=== PATIENT | female | born 1935 | race Caucasian/White ===

== ENCOUNTER 2017-12-01 12:24 | Outpatient (CLI) | payer MEDICARE, BC ==
[2017-12-01 14:18] LABS: #Lymphocytes 1.2 thou/uL (1.20-3.40); #Monocytes 0.5 thou/uL (0.11-0.59); #Neutrophils 4.5 thou/uL (1.40-6.50); %Basophils 0.8 % (0.0-1.0); %Eosinophils 0.4 % (0.0-10.0); %Lymphocytes 19.5 % (21.0-51.0); %Monocytes 7.8 % (0.0-10.0); %Neutrophils 71.5 % (42.0-75.0); Hemoglobin 13.3 g/dL (12.0-16.0); Mean Corpuscular HGB CONC 33.5 g/dL (32.0-36.0); Mean Corpuscular Hemoglobin 31.7 pg (27.0-31.0); Mean Corpuscular Volume 94.7 fl (81.0-99.0); Mean Platelet Volume 6.9 fL (7.4-10.4); Platelet Count 180 thou/uL (130-400); RBC Distribution Width 11.8 % (11.5-14.5); White Blood Cell (WBC) Count 6.3 thou/uL (4.8-10.8)
[2017-12-01 14:20] LABS: Bilirubin Negative (Negative); Blood, Urine Negative (Negative); Clarity CLEAR (Clear); Glucose, Urine (Dipstick) Negative (Negative); Leukocyte Negative (Negative); Nitrite Negative (Negative); Protein, Urine (Dipstick) Negative (Neg-Trace); Specific Gravity, Urine 1.017 (1.002-1.036); Urobilinogen 0.2 mg/dL (0.2-1.0)
[2017-12-01 14:23] LABS: PTT 34.5 SEC (22.9-36.1)
[2017-12-01 14:34] LABS: Anion Gap 12 mmol/L (10-20); BUN (Urea Nitrogen) 29 mg/dL (9.8-20.1); Calc. Creatinine Clearance 0 mL/min (70-130); Calcium 9.9 mg/dL (7.8-10.44); Carbon Dioxide 23 mmol/L (23-31); Chloride 107 mmol/L (98-107); Estimated GFR-MDRD 48; Glucose 93 mg/dL (83-110); Potassium 4.3 mmol/L (3.5-5.1); Sodium 138 mmol/L (136-145)
[2017-12-01 14:48] LABS: Bacteria/HPF None Seen HPF (None Seen); Hyaline Casts/LPF 0-3 HYALINE CAST LPF (0-3 Hyaline); RBC/HPF 0-3 HPF (0-3); Squamous Epithelial 0-3 HPF (0-3); WBC/HPF 0-3 HPF (0-3)
--- NOTE | 2017-12-03 17:37 | EKG ---
Test Reason : Blood Pressure : / mmHG Vent. Rate : 064 BPM Atrial Rate : 064 BPM P-R Int : 202 ms QRS Dur : 070 ms QT Int : 408 ms P-R-T Axes : 059 031 014 degrees QTc Int : 420 ms Normal sinus rhythm Normal ECG No previous ECGs available Confirmed by DR. Alan ZAMUDIO ([id number]) on 12/03/2017 5:36:52 PM Referred By: IERO Confirmed By:DR. Alan ZAMUDIO
== END 2017-12-01 12:25 | disposition home or self-care (01) ==
LOC: LABBT 12:24
PROVIDERS: ATTEND Orthopaedic Surgery
DX: Z01.810 Encounter for preprocedural cardiovascular examination (principal); Z01.812 Encounter for preprocedural laboratory examination; M17.12 Unilateral primary osteoarthritis, left knee
CPT/HCPCS: 80048; 81001; 85025; 85610; 85730; 87081; 93005; 93010

== ENCOUNTER 2017-12-08 13:55 | Outpatient (CLI) | payer MEDICARE, BC | END 2017-12-08 13:56 | disposition home or self-care (01) | LOC: LABBT 13:55 | PROVIDERS: ATTEND Orthopaedic Surgery | DX: Z01.818 Encounter for other preprocedural examination (principal); M17.12 Unilateral primary osteoarthritis, left knee | CPT/HCPCS: 86850; 86900; 86901 ==

== ENCOUNTER 2017-12-14 07:08 | Day surgery (SDC) | payer MEDICARE, BC ==
[2017-12-01 13:04] VITALS: BMI 32.5
[2017-12-14] MEDS ORDERED: CEFAZOLIN/Water 2 GM/20 ML SYRINGE ONE (08:05)
[2017-12-14] MEDS ORDERED: Midazolam HCl 2 mg/2 ml Vial ONE (08:06)
[2017-12-14] MEDS ORDERED: Morphine 2 MG/ML SYRINGE ONE (08:06)
[2017-12-14] MEDS ORDERED: Ropivacaine 0.2% HCl/PF 20 ML ONE (08:07)
[2017-12-14] MEDS ORDERED: Ketorolac Tromethamine 30 MG/ML VIAL IVP PRN (08:46)
[2017-12-14] MEDS ORDERED: Ondansetron HCl/PF 4 MG/2 ML Vial IVP PRN ×4 (08:46→12:48)
[2017-12-14] MEDS ORDERED: traMADol HCl 50 MG TAB PO PRN ×2 (08:46→11:21)
[2017-12-14] MEDS ORDERED: Ropivacaine HCl/PF 250 ML in Premix Bag 1 BAG NERVE BLCK SCH (08:46)
[2017-12-14] MEDS ORDERED: Zolpidem Tartrate 5 MG TAB PO PRN ×2 (08:46→11:21)
[2017-12-14] MEDS ORDERED: Promethazine HCl 25 MG/ML VIAL IM PRN ×3 (08:46→11:34)
[2017-12-14] MEDS ORDERED: Fentanyl 100 MCG/2 ML VIAL IV PRN (08:47)
[2017-12-14] MEDS ORDERED: HYDROcodone/Acetaminophen 7.5/325 mg Tablet PO PRN ×2 (08:48)
[2017-12-14] MEDS ORDERED: Bupivacaine HCl 0.5%/Epinephrine 1:200,000/PF 30 ml Vial ONE (09:12)
[2017-12-14] MEDS ORDERED: Bupivacaine 0.5% 10 ML VIAL ONE (09:12)
[2017-12-14] MEDS ORDERED: Ropivacaine 0.5% HCl/PF (150 MG/30 ML VIAL) ONE (09:47)
[2017-12-14] MEDS ORDERED: Acetaminophen 325 MG TAB PO PRN (11:21)
[2017-12-14] MEDS ORDERED: diphenhydrAMINE 25 MG CAP PO PRN (11:21)
[2017-12-14] MEDS ORDERED: HYDROcodone/Acetaminophen 10/325 mg Tablet PO PRN ×2 (11:21)
[2017-12-14] MEDS ORDERED: Tranexamic Acid 1,000 MG in Sodium Chloride 0.9% 100 ML IVPB SCH (11:30)
[2017-12-14] MEDS ORDERED: Fentanyl 250 MCG/5 ML VIAL ONE (11:34)
[2017-12-14] MEDS ORDERED: Promethazine HCl 25 MG/ML VIAL SLOW IVP PRN (11:34)
--- NOTE | 2017-12-14 11:51 | OP ---
DATE OF PROCEDURE: 12/14/2017 PREOPERATIVE DIAGNOSIS: Left knee osteoarthrosis. POSTOPERATIVE DIAGNOSIS: Left knee osteoarthrosis. PROCEDURE PERFORMED: Left total knee replacement using Bar Saint pinless navigation. SURGEON: Gregorio Schneider M.D. USER EXPERIENCE MANAGER: Ha Gamez PA-C. BLOOD LOSS: Minimal. COMPLICATIONS: None. ANESTHESIA: She did have a general anesthetic as well as preoperative blocks. DISPOSITION: She did go to the recovery room in stable condition. IMPLANTS: To the left knee is a Triathlon total knee system. The femur was a size 4 cruciate retain ing. We used a size 3 universal tibial baseplate. We used a 3 x 9 mm CS X3 tibial-bearing. We used an asymmetric 29 x 9 X3 patella. 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 At this time, she wants to have her k nee replaced. PROCEDURE IN DETAIL: After all appropriate consent forms were explained and signed, the patient was taken back to the Operating Room and at this time was given general anesthetic. Once the level of an esthesia was appropriate, a well-padded tourniquet was placed on the left leg and the leg was then pr epped and draped in standard surgical fashion. The limb was exsanguinated and tourniquet taken up to 300 mmHg. Midline incision was made with a 10 blade down through the skin and subcutaneous tissue. Bovie electrocautery was used to coagulate any brisk venous bleeding. A new blade was used to make a medial parapatellar arthrotomy. Small subperiosteal release was performed medially and excess fat pad was removed. The knee was flexed up to gain access to the femur. The femur was navigated and di stal femoral resection was made. Epicondylar access was used to align our sizing jig and this was pi nned in place. We sized our femur to be a size 4 cruciate retaining, 4:1 cutting block was applied a nd pinned. Anterior and posterior chamfer cuts were then made. We navigated out our proximal tibia and made our proximal tibial resection. Spreaders were used to remove any posterior osteophytes off the back of the femur as well as remaining meniscal tissue. A long alignment john was then used to ac hieve correct rotation of our tibial baseplate and a size 3 universal tibial baseplate was chosen. T his was pinned in place. We trialed the polyethylene and a 3 x 9 mm CS X3 tibial-bearing polyethylen e gave us full extension and good stability throughout range of motion. Two towel clips and a saw we re used to cut our patella. Three lug nuts were drilled and 29 x 9 X3 patella was trialed which sat nicely in the trochlear groove. We then drilled our femur and punched our tibia. All components wer e removed. The knee was thoroughly irrigated and dried. Cement was mixed into the cement gun on the back table. Components were then placed. The knee was held out in full extension until the cement had dried. All excess bone cement was removed. Multiple #2 Vicryl stitches as well as a Quill was u sed to close our extensor mechanism. 0 Quill followed by a running Monoderm was then used to close t he skin. Surgicel glue was then used on the skin. Once this had dried, soft tissue dressing was cherry lied to the limb, tourniquet was let down, and the toes pinked up nicely. The patient was then awake renzo and taken to the Recovery Room in stable condition. All counts were correct at the end of the ca se. The patient did receive preoperative IV antibiotics. The patient was injected with Exparel for postoperative pain relief.
[2017-12-14] MEDS ORDERED: Promethazine HCl 25 MG/ML VIAL IM/IV PRN (12:48)
[2017-12-14] MEDS ORDERED: Non-Formulary Medication 1 EACH PO PRN (12:48)
[2017-12-14] MEDS: Sodium Chloride 0.9% 1,000 ML IV SCH (14:12)
[2017-12-14] MEDS ORDERED: Dexamethasone 20 MG/5 ML VIAL ONE (14:44)
[2017-12-14] MEDS ORDERED: Ondansetron HCl/PF 4 MG/2 ML Vial ONE (14:44)
[2017-12-14] MEDS ORDERED: Propofol 200 MG/20 ML VIAL ONE (14:44)
[2017-12-14] MEDS: Gabapentin 400 MG CAP PO SCH ×2 (15:58→21:23)
[2017-12-14] MEDS ORDERED: CEFAZOLIN/Water 2 GM/20 ML SYRINGE SLOW IVP SCH (16:00)
[2017-12-14] MEDS: CEFAZOLIN/Water 2 GM/20 ML SYRINGE SLOW IVP SCH (18:03)
[2017-12-14] MEDS ORDERED: Vancomycin HCl 1.5 GM in Sodium Chloride 0.9% 250 ML 300 ML IVPB SCH (20:00)
[2017-12-14] MEDS: Senokot S 8.6-50 MG TAB PO SCH (21:21)
[2017-12-14] MEDS: Ferrous Gluconate 324 MG TAB PO SCH (21:21)
[2017-12-14] MEDS: Aspirin 81 mg Enteric Coated Tablet PO SCH (21:23)
[2017-12-15] MEDS: Sodium Chloride 0.9% 1,000 ML IV SCH ×3 (00:32→17:03)
[2017-12-15] MEDS: CEFAZOLIN/Water 2 GM/20 ML SYRINGE SLOW IVP SCH (02:09)
[2017-12-15 06:01] LABS: Hemoglobin 10.9 g/dL (12.0-16.0); Mean Corpuscular HGB CONC 32.3 g/dL (32.0-36.0); Mean Corpuscular Hemoglobin 30.7 pg (27.0-31.0); Mean Corpuscular Volume 95.2 fl (81.0-99.0); Mean Platelet Volume 6.9 fL (7.4-10.4); Platelet Count 151 thou/uL (130-400); RBC Distribution Width 11.8 % (11.5-14.5); Red Blood Cell (RBC) Count 3.56 mill/uL (4.20-5.40); White Blood Cell (WBC) Count 10.2 thou/uL (4.8-10.8)
[2017-12-15] MEDS: traMADol HCl 50 MG TAB PO PRN ×2 (06:13→14:41)
[2017-12-15] MEDS: Gabapentin 400 MG CAP PO SCH ×3 (08:44→20:40)
[2017-12-15] MEDS: Ferrous Gluconate 324 MG TAB PO SCH ×2 (08:44→20:39)
[2017-12-15] MEDS: Multivitamin W/ Minerals 1 TAB PO SCH (08:44)
[2017-12-15] MEDS: Senokot S 8.6-50 MG TAB PO SCH ×2 (08:44→20:40)
[2017-12-15] MEDS: Aspirin 81 mg Enteric Coated Tablet PO SCH ×2 (08:44→20:39)
--- NOTE | 2017-12-15 10:21 | PRG ---
DATE OF SERVICE: 12/15/2017 SUBJECTIVE: Rani is an 82-year-old female who is postop day #1 from a left total knee arthroplas ty. She did relatively well. Pain is relatively well controlled on p.o. pain medications. OBJECTIVE: VITAL SIGNS: Temperature 98.4, pulse 82, respiratory rate 16, O2 saturation on room air is 93%, benjie thing appears unlabored, and blood pressure is 131/69. GENERAL: She is alert and oriented to person, place, time, and situation. Tolerating regular diet. Chi still intact and her block is working relatively well, but she did have some sensation to pain about 5:00 a.m. today and has been persistent. NEUROVASCULAR: She is neurovascularly intact in both extremities with good dorsiflexion, inversion, eversion. EXTREMITIES: Wound appears clean. There is no strike through. No erythema. LABORATORY DATA: Hemoglobin and hematocrit 10.9 and 33.9. ASSESSMENT: 1. An 82-year-old white female postoperative day #1 left total knee arthroplasty, doing relatively w ell other than with some amplification of pain. 2. Postoperative hemorrhagic anemia. PLAN: Continue current management need to establish p.o. pain control, meet therapy goals and consid er discharge tomorrow.
[2017-12-16] MEDS: traMADol HCl 50 MG TAB PO PRN ×2 (00:41→12:20)
[2017-12-16] MEDS: Sodium Chloride 0.9% 1,000 ML IV SCH ×2 (04:09→14:12)
[2017-12-16 04:23] LABS: Hemoglobin 11.2 g/dL (12.0-16.0); Mean Corpuscular HGB CONC 33.7 g/dL (32.0-36.0); Mean Corpuscular Hemoglobin 31.8 pg (27.0-31.0); Mean Corpuscular Volume 94.5 fl (81.0-99.0); Platelet Count 150 thou/uL (130-400); RBC Distribution Width 12.2 % (11.5-14.5); Red Blood Cell (RBC) Count 3.51 mill/uL (4.20-5.40); White Blood Cell (WBC) Count 10.6 thou/uL (4.8-10.8)
[2017-12-16] MEDS: Senokot S 8.6-50 MG TAB PO SCH (08:19)
[2017-12-16] MEDS: Ferrous Gluconate 324 MG TAB PO SCH (08:19)
[2017-12-16] MEDS: Aspirin 81 mg Enteric Coated Tablet PO SCH (08:19)
[2017-12-16] MEDS: Multivitamin W/ Minerals 1 TAB PO SCH (08:19)
[2017-12-16] MEDS: Gabapentin 400 MG CAP PO SCH (08:20)
[2017-12-16 11:50] VITALS: BP 154/78; TEMP 98.3
[2017-12-18] MEDS ORDERED: CeleCOXIB 100 MG CAP PO SCH (09:00)
== END 2017-12-16 15:31 | disposition home or self-care (01) ==
LOC: SDC 07:08 → SJJU 12:33 → SDC 12-16 15:31
PROVIDERS: ATTEND Orthopaedic Surgery
PROC: 0SRD0J9 Replacement of Left Knee Joint with Synthetic Substitute, Cemented, Open Approach (ICD-10-PCS; principal; 2017-12-14)
DX: M17.12 Unilateral primary osteoarthritis, left knee (principal); D62 Acute posthemorrhagic anemia; G62.9 Polyneuropathy, unspecified; Z79.899 Other long term (current) drug therapy; Z98.890 Other specified postprocedural states
CPT/HCPCS: 27447; 85027; 96374; 97110 ×2; 97116 ×3; 97139; 97150; 97530; C1713; C1776; G8978; G8979; 36415; J0670; J1100; J1642; J1885; J2250; J2270; J2405; J2704; J2795; J3010; J3370; J3490; J7050

== ENCOUNTER 2018-12-03 13:40 | Outpatient (CLI) | payer MEDICARE, BC ==
--- NOTE | 2018-12-03 16:03 | MRI ---
MRI BRAIN WITH AND WITHOUT CONTRAST: DATE: 12/03/18 HISTORY: 83-year-old female with history of ovarian cancer, with intracranial mass, D32.9, meningioma. Dr. Dubose discussed the findings and recommendation by telephone with Dr. Megha Warren at 1536 hours on 12/03/18. COMPARISON: None available. TECHNIQUE: Multiple sequences obtained in axial, sagittal, and coronal planes; pre and post IV injection of gado linium-based contrast agent: 15 mL MultiHance. FINDINGS: There is a round, 0.9 x 0.7 x 0.6 cm, enhancing mass at the trifurcation of the right middle cerebral artery consistent with aneurysm. At the medial aspect of the left cerebellar hemisphere, there is a heterogeneously enhancing solid ma ss measuring approximately 1.9 x 2.3 x 1.8 cm. It has mixed signal intensity, including intermediate and hyperintense signal on both T2 WI and T1 WI precontrast. There is no surrounding vasogenic edema. It appears to be intra-axial. There is a small cortical and subcortical old infarction near the right parietooccipital junction. Th ere are chronic ischemic white matter changes scattered throughout the bilateral chiu radiata and c entrum semiovale. Diffuse, age-appropriate brain parenchymal volume loss. No obstructive hydrocephalu s, mass effect, midline shift, acute intra-axial hemorrhage, or extra-axial fluid collection. The gra dient echo sequence demonstrates multiple tiny, punctate foci of remote hemorrhages in the right post erior parietal region. There is no restricted diffusion. IMPRESSION: 1. 0.9 cm intracranial aneurysm at the trifurcation of the right middle cerebral artery. 2. A 2.3 cm enhancing neoplastic tumor mass in the left cerebellar hemisphere. This appears to be in tra-axial, and metastatic lesion should be considered, although the lack of vasogenic edema would be unusual for a metastasis. The alternative diagnosis of meningioma, as stated in the history, is a pos sibility, but the appearance is also atypical for meningioma, with weak, heterogeneous enhancement, a nd without a broad dural base (although perhaps it may be arising from a midline dural reflection). 3. Multiple punctate tiny foci of remote hemorrhages in the right parietal lobe, perhaps representin g mild amyloid angiopathy. 4. Probable small old infarction of the right parietooccipital junction. 5. Recommend neurosurgical consultation. CODE CR. MARIMAR R POS: TPC
== END 2018-12-03 13:41 | disposition home or self-care (01) ==
LOC: SCSMRI 13:40
PROVIDERS: ATTEND Internal Medicine Geriatric Medicine
DX: D32.0 Benign neoplasm of cerebral meninges (principal); I67.1 Cerebral aneurysm, nonruptured
CPT/HCPCS: 70553; 82565

== ENCOUNTER 2018-12-23 13:17 | Outpatient (CLI) | payer MEDICARE, BC ==
--- NOTE | 2018-12-23 15:37 | PET ---
FEXAM: PET/CT HISTORY: 83-year-old female with ovarian cancer. Exam requested for restaging. Last chemotherapy was in November 2015. TECHNIQUE: PET scanning with CT attenuation correction was performed from the base of the brain to the proximal thighs following the intravenous administration of 12.4 millicuries [id number]. COMPARISON: None. FINDINGS: No yessenia hypermetabolism is seen in the neck, chest, axillae, abdomen, pelvis and inguinal regions. N o hypermetabolic pulmonary nodules, liver, adrenal or skeletal lesions are seen. . There is physiologic activity in the GI and tracts and the visualized portions of the brain. The CT scan used for attenuation correction demonstrates no evidence of pleural effusions or ascites. There is sigmoid diverticulosis IMPRESSION: No evidence of metastatic disease.
== END 2018-12-23 13:18 | disposition home or self-care (01) ==
LOC: PET 13:17
PROVIDERS: ATTEND Radiology Radiation Oncology
DX: C56.9 Malignant neoplasm of unspecified ovary (principal)
CPT/HCPCS: 78815; A9552

== ENCOUNTER 2019-02-08 10:13 | Outpatient (CLI) | payer MEDICARE, BC ==
--- NOTE | 2019-02-08 12:18 | MRI ---
MRI BRAIN WITH AND WITHOUT CONTRAST: DATE: 02/08/2019 HISTORY: 83-year-old female with history of ovarian cancer. Follow-up abnormal brain MRI. COMPARISON: 12/03/2018 TECHNIQUE: Multiplanar, multisequence MRI of the brain performed pre- and post-IV injection of gadolinium based contrast agent. FINDINGS: The mass in the left cerebellar hemisphere has become larger, currently measuring approximately 2.8 x 2.4 x 3 cm. There is now a central component of nonenhancing necrosis within the tumor. Also, there is a new finding of mild adjacent surrounding vasogenic edema. This now appears to be more conc lusively intra-axial on the current MRI. This still does not cause significant mass effect. No obstructive hydrocephalus. The aneurysm at the right MCA trifurcation has not significantly changed. No other intra-axial metast atic lesions are identified. Again noted are the multiple tiny foci of remote punctate hemorrhages in the right parietal region, perhaps representing regional amyloid angiopathy. The small cortical an d subcortical old infarction near the right parieto-occipital junction is again noted. Chronic ischemic white matter changes of the chiu radiata and centrum semiovale, mild to moderate, are agai n demonstrated. No restricted diffusion. IMPRESSION: 1) interval growth of left cerebellar intra-axial mass, now necrotic with surrounding vasogenic edema . 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 2) aneurysm at the right middle cerebral artery trifurcation 3) small to moderate-sized old right parieto-occipital infarction. 4) other findings as described above.
== END 2019-02-08 10:14 | disposition home or self-care (01) ==
LOC: SCSMRI 10:13
PROVIDERS: ATTEND Neurological Surgery
DX: D49.6 Neoplasm of unspecified behavior of brain (principal); I67.1 Cerebral aneurysm, nonruptured; G93.6 Cerebral edema; G93.9 Disorder of brain, unspecified; I25.2 Old myocardial infarction; I67.82 Cerebral ischemia
CPT/HCPCS: 70553; 82565

== ENCOUNTER 2019-02-18 05:49 | Inpatient (IN) | payer MEDICARE, BC ==
--- NOTE | 2019-02-18 00:22 | HP ---
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 MRI of her brain in November revealed small aneurysm and a lesion in the left cerebellum. Followup scan 2 months later showed enlargement of the lesion and she is here for my opinion on treating it. Her symptoms are minimal. She seems to get a bit off balance as she ages, but the hands and feet continue to feel coordinated and normal. There is no headache. MEDICAL HISTORY: Ovarian cancer, neuropathy. ALLERGIES: HYDROCODONE, ACETAMINOPHEN. REVIEW OF SYSTEMS: A 10-point review of systems has been completed and is negative other than stated in the above HPI. PAST SURGICAL HISTORY: Venous ablation, tonsillectomy, carpal tunnel, left total knee. FAMILY HISTORY: Father of emphysema. Mother . SOCIAL HISTORY: Nonsmoker. Denies alcohol or drugs. 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 PHYSICAL EXAMINATION: CONSTITUTIONAL: Alert, oriented, in no visible distress. LUNGS: Respirations normal work of breathing on room air. NEUROLOGIC: Cranial nerves intact. Cerebellar exam, there is no truncal ataxia. Slight slow finger rapid motion on the left versus right hand, but this is very suitable. Gait and station are normal gait. Tandem gait is a bit off balance, not terrible. Motor exam no drift. Sensory exam no neglect. IMAGING: MRI left cerebellar lesion enhancing with central cystic component 19 x 22 mm at 1st, now 25 x 23 mm, open 4th ventricle. No other enhancing lesions. 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 Olivia has offered to biopsy and the patient understands the risks and is willing to move forward. Job ID: [id number]
[2019-02-18] MEDS ORDERED: Lidocaine 0.5%/Epinephrine 1:200,000 50 ml Vial ONE (06:16)
[2019-02-18] MEDS ORDERED: Bacitracin Zinc Ointment 30 gm TUBE ONE (06:17)
[2019-02-18] MEDS ORDERED: Sodium Chloride 0.9% 10 ML ONE (06:17)
[2019-02-18] MEDS ORDERED: Thrombin 5000 UNITS/5 ML VIAL ONE (06:17)
[2019-02-18] MEDS ORDERED: Fentanyl 250 MCG/5 ML VIAL ONE (06:19)
[2019-02-18 06:55] LABS: #Monocytes 0.5 thou/uL (0.11-0.59); #Neutrophils 3.6 thou/uL (1.40-6.50); %Basophils 0.6 % (0.0-1.0); %Eosinophils 0.2 % (0.0-10.0); %Lymphocytes 20.1 % (21.0-51.0); %Monocytes 9.3 % (0.0-10.0); %Neutrophils 69.8 % (42.0-75.0); Hemoglobin 13.1 g/dL (12.0-16.0); Mean Corpuscular HGB CONC 33.7 g/dL (32.0-36.0); Mean Corpuscular Hemoglobin 31.8 pg (27.0-31.0); Mean Corpuscular Volume 94.3 fL (78.0-98.0); Mean Platelet Volume 7.6 fL (7.4-10.4); Platelet Count 158 thou/uL (130-400); RBC Distribution Width 12.2 % (11.5-14.5); White Blood Cell (WBC) Count 5.1 thou/uL (4.8-10.8)
[2019-02-18 07:00] LABS: PTT 31.2 SEC (22.9-36.1); Prothrombin Time 13.2 SEC (12.0-14.7)
[2019-02-18] MEDS ORDERED: Docusate 100 MG CAP PO PRN (09:45)
[2019-02-18] MEDS ORDERED: Morphine 4 MG/ML VIAL SLOW IVP PRN ×2 (09:45)
[2019-02-18] MEDS ORDERED: hydrALAZINE 20 MG/ML VIAL SLOW IVP PRN (09:45)
[2019-02-18] MEDS ORDERED: Promethazine 25 MG TAB PO PRN (09:45)
[2019-02-18] MEDS ORDERED: diphenhydrAMINE 50 MG CAP PO PRN (09:45)
[2019-02-18] MEDS ORDERED: Cepastat Lozenges 1 LOZ PO PRN (09:45)
[2019-02-18] MEDS ORDERED: Acetaminophen 325 MG TAB PO PRN ×2 (09:45→09:55)
[2019-02-18] MEDS ORDERED: Mag-Al 1200 mg/1200 mg/30 ML UDCUP PO PRN (09:45)
[2019-02-18] MEDS ORDERED: diphenhydrAMINE 50 MG/ML VIAL IVP PRN (09:45)
[2019-02-18] MEDS ORDERED: Promethazine HCl 25 MG/ML VIAL IM PRN ×2 (09:45→10:11)
[2019-02-18] MEDS ORDERED: Labetalol HCl 100 MG/20 ML VIAL SLOW IVP PRN ×2 (09:45→12:00)
[2019-02-18] MEDS ORDERED: Ondansetron PF 4 MG/2 ML Vial IVP PRN (09:45)
[2019-02-18] MEDS ORDERED: Promethazine HCl 25 MG/ML VIAL SLOW IVP PRN (10:11)
[2019-02-18] MEDS ORDERED: Ondansetron HCl/PF 4 MG/2 ML Vial IVP PRN (10:11)
[2019-02-18] MEDS ORDERED: Labetalol HCl 100 MG/20 ML VIAL ONE (10:16)
[2019-02-18] MEDS: Sodium Chloride 0.9% 1,000 ML IV SCH ×2 (11:44→20:24)
[2019-02-18 11:51] VITALS: BMI 35.1
[2019-02-18] MEDS: Gabapentin 400 MG CAP PO SCH ×2 (14:06→20:24)
[2019-02-18] MEDS: CEFAZOLIN 2 GM in Premix Bag 1 BAG IVPB SCH ×2 (14:06→20:25)
[2019-02-18 15:52] VITALS: BP 111/76
--- NOTE | 2019-02-18 16:39 | OP ---
DATE OF PROCEDURE: 02/18/2019 SNUFF MAKER: Indu Pratt PA-C PREOPERATIVE INDICATION: Make diagnosis, prevent neurological deterioration. PREOPERATIVE DIAGNOSIS: Left cerebellar lesion, possible metastasis or primary tumor. POSTOPERATIVE DIAGNOSIS: Left cerebellar lesion, possible metastasis or primary tumor. PROCEDURE PERFORMED: BrainLAB-assisted stereotactic, twist-drill assisted biopsy of left cerebellar lesion. PREOPERATIVE MEDICATIONS: Ancef 2 g IV. DRAIN NUMBER: Zero. DRAIN TYPE: None. DESCRIPTION OF PROCEDURE: The patient was brought to the operating room. General endotracheal anesthesia was induced. The patient was placed in right lateral decubitus position and the head was immobilized in Dockery pin and head bone grinder. We generated 3-dimensional stereotactic space with the BrainLAB navigation system. This was done with the surface registration technique and preoperative BrainLAB protocol MRI scan. Registration was verified with surface landmarks. We then planned our entry point. The scalp was sterilely prepped and draped. We opened the skin over our entry point with a 10-blade knife and controlled bleeding with bipolar cautery. We placed a self-retaining retractor. The VarioGuide guidance system was swung into place. Through the VarioGuide, we advanced the twist-drill and encountered a ledge of bone that was causing the twist-drill to deviate. Therefore, we brought a high-speed drill with a alice bit into the field and made about a 4-mm kelsie hole in the posterior fossa at her entry point. We then brought the VarioGuide back in the field and verified our trajectory. We advanced the biopsy probe through the cerebellum into the lesion. Four samples were sent to Pathology and we waited for their answer. When the pathologist called that the lesion was likely metastatic and they had enough tissue to make a permanent diagnosis, we elected not to sample any more tissue. We irrigated through the biopsy probe. The biopsy probe was carefully withdrawn. We irrigated the entry point and found no bleeding. We closed the wound with a single suture and four jayne. We applied a sterile dressing. This was a clean case, no contamination. Job ID: [id number]
[2019-02-18] MEDS ORDERED: Ergocalciferol 1.25 MG(50,000 UNITS) CAP PO SCH (17:00)
--- NOTE | 2019-02-19 07:21 | PRG ---
DATE OF SERVICE: 02/19/2019 I saw Ms. Krueger in her ICU room this morning. She is one day out from a cerebellar biopsy and doing well. She has no complaints overnight. Her vital signs have been stable. Her neurological examination is stable as well. ASSESSMENT AND PLAN: The preliminary pathology (frozen section) suggests a metastatic lesion. There is a papillary architecture to what appears to be an adenocarcinoma or at least a carcinoma. 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 If this indeed is a metastatic lesion, then I will recommend radiation therapy in the form of stereotactic radiosurgery or hypofractionated radiosurgery or even external beam radiation. I will have her visit with Dr. Haines to design a treatment plan. Ms. Krueger is ready for discharge. She does not need a dressing and showers are acceptable. I do not have an activity restrictions. Job ID: [id number]
[2019-02-19] MEDS: Gabapentin 400 MG CAP PO SCH (07:54)
[2019-02-19] MEDS ORDERED: Calcium Carbonate 500 MG ChewTAB PO SCH (09:00)
[2019-02-19 12:05] VITALS: TEMP 98.4
[2019-02-25] MEDS ORDERED: [UNRECOGNIZED DRUG - OTHER] PO SCH (09:00)
== END 2019-02-19 12:20 | disposition home or self-care (01) | DRG 27 ==
LOC: SURG A 05:49 → EDSTATUS 09:55 → CCU 10:57
PROVIDERS: ADMIT Neurological Surgery; ATTEND Neurological Surgery
PROC: 00B Central Nervous System and Cranial Nerves, Excision (ICD-10-PCS; principal; 2019-02-18)
DX: C79.31 Secondary malignant neoplasm of brain (principal); G62.9 Polyneuropathy, unspecified; Z96.652 Presence of left artificial knee joint; Z85.43 Personal history of malignant neoplasm of ovary; Z88.8 Allergy status to other drugs, medicaments and biological substances; Z90.710 Acquired absence of both cervix and uterus; Z90.89 Acquired absence of other organs
CPT/HCPCS: 85025; 85610; 85730; J0690; J2001; J3010; J3490

== ENCOUNTER 2019-03-07 09:29 | Outpatient (CLI) | payer MEDICARE, BC ==
--- NOTE | 2019-03-07 11:13 | MRI ---
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 Radiation therapy planning. COMPARISON: 02/08/2019 TECHNIQUE: Multiplanar, multisequence MRI of the brain performed pre- and post-IV injection of gadolinium based contrast agent. FINDINGS: 9 x 8 x 6 mm aneurysm at trifurcation of right middle cerebral artery. Somewhat weakly enhancing left cerebellar hemispheric mass with necrotic center, measuring approximat jordana 3.3 x 2.6 x 2.8 cm with necrotic center. Probably not significantly changed. It has a thin hemosiderin ring. There is a new finding of a kelsie hole in the left occipital bone, with associated enhancement, probab ly representing a site of biopsy recently. Again noted are the previously demonstrated mentioned findings, including numerous punctate foci of h emosiderin stains in the right parieto-occipital region, small old infarction in right parieto-occipital region, moderate degree of chronic ischemic white matter changes, diffuse, age-appr opriate parenchymal parenchymal volume loss with mild ventriculomegaly but no obstructive hydrocephalus. IMPRESSION: 1) status post recent biopsy of the left cerebellar metastatic tumor mass via occipital kelsie hole. 2) no other interval change. 3) right middle cerebral artery intracranial aneurysm. 4) old insult in the right parieto-occipital region. 5) moderate chronic ischemic white matter changes.
== END 2019-03-07 09:30 | disposition home or self-care (01) ==
LOC: SCSMRI 09:29
PROVIDERS: ATTEND Radiology Radiation Oncology
DX: C79.31 Secondary malignant neoplasm of brain (principal); C56.9 Malignant neoplasm of unspecified ovary; I67.1 Cerebral aneurysm, nonruptured; I67.82 Cerebral ischemia
CPT/HCPCS: 70553

== ENCOUNTER 2019-08-11 11:42 | Outpatient (CLI) | payer MEDICARE, BC ==
--- NOTE | 2019-08-11 13:27 | MRI ---
BRAIN MRI WITH AND WITHOUT CONTRAST: HISTORY: Ovarian cancer with brain metastases. COMPARISON: 03/07/2019. FINDINGS: Gradient echo sequence: Hemosiderin deposition at the operative site from previous surgical resection of the mass in the left cerebellar hemisphere. Additional hypointensities along the right parietal lobe may represent amyloid angiopathy. Calvarium: Appropriate T1 marrow signal intensity. Midline brain parenchyma: Unremarkable. Cerebrum:No parenchymal mass, mass effect or midline shift. Brain volume is age-appropriate. Cortical negro-white matter differentiation is preserved. T2 and FLAIR white matter hyperintensities due to chronic small vessel ischemic change. Cerebellum: Encephalomalacia and gliosis involving the medial left cerebellar hemisphere, compatible with postsurgical change. Left occipital calvarium demonstrates stable postsurgical defect. Ventricles: No evidence of hydrocephalus. Sinuses and mastoid air cells: Adequate aeration. Diffusion: Central arterial flow is maintained. Stable aneurysm at the terminus of the right M1 segme nt Absent restricted diffusion. Postcontrast images:First enhancing mass in the medial left occipital lobe measures 1.8 x 1.3 cm. The overall size of enhancement has decreased. Previously, the enhancement measured 2.3 x 2.5 cm. Residual enhancement may represent postsurgical scar versus residual tumor. No new areas of enhanceme nt in the posterior fossa. IMPRESSION: 1. No abnormal enhancement of the cerebrum. 2. Decreased but persistent peripheral enhancement involving the medial left cerebellum likely repres ent postsurgical change versus residual tumor. Transcribed Date/Time: 08/11/2019 1:42 PM
[2019-08-11] MEDS ORDERED: Magnevist 469MG/ML 20 ML VIAL ONE (15:36)
== END 2019-08-11 11:43 | disposition home or self-care (01) ==
LOC: MRI 11:42
PROVIDERS: ATTEND Radiology Radiation Oncology
DX: C79.31 Secondary malignant neoplasm of brain (principal); C56.9 Malignant neoplasm of unspecified ovary
CPT/HCPCS: 70553; 82565; A9579

== ENCOUNTER 2019-11-16 10:57 | Outpatient (CLI) | payer MEDICARE, BC ==
--- NOTE | 2019-11-16 13:12 | MRI ---
Brain MRI with and without contrast: 11/16/2019 COMPARISON: 08/11/2019, 03/07/2019, 02/08/2019 HISTORY: Ovarian cancer, intracranial metastatic disease status post radiation therapy TECHNIQUE: Multiplanar multisequence MR imaging of the brain is obtained without and with contrast FINDINGS: The diffusion weighted imaging demonstrates no evidence for acute infarction. Multifocal periventricular, deep, and subcortical white matter T2 and FLAIR hyperintensity, evidence of small vessel disease, not significantly changed. Stable cerebral volume loss. Regional bone marrow signal intensity grossly unremarkable. Arterial flow voids at axial level of skull base demonstrate findings suspicious for an intracranial aneurysm in the region of the MCA bifurcation on the right measuring approximately 8 mm in transverse dimension. There is evidence of an occipital kelsie hole for prior cerebellar biopsy on the left. The patient has a history of intracranial metastatic lesion within the medial aspect of the left cere bellar hemisphere. When compared to the most recent prior examination, the degree of vasogenic edema surrounding this lesion has slightly increased lateral to and superior to the lesion. The gradi ent echo imaging demonstrates a hemosiderin ring surrounding the lesion. It demonstrates significant internal intrinsic T1 hyperintensity and the postcontrast imaging demonstrates rim enhanc ement, most conspicuous along the superior margin of this lesion. It is located within the medial aspect of the left cerebellar hemisphere and on the postcontrast imaging measures approximately 1.7 c m craniocaudal dimension, 1.9 cm AP dimension, and 1.8 cm in transverse dimension. On the postcontrast imaging the lesion measured 1.8 x 1.6 x 1.8 cm on the 08/11/2019 exam, thus not signific antly changed. It is definitely decreased in size when compared to the 03/07/2019 exam at which time it measured 2.4 x 2.7 x 2.8 cm. On this examination there is no new/additional intra-axial lesion. IMPRESSION: Solitary metastatic lesion within the medial aspect of the left cerebellar hemisphere, un changed in size on post contrast imaging when compared to 08/11/2019 and decreased in size when compared to 03/07/2019. Questionable slight interval increase in surrounding vasogenic edema when comp ared to 08/11/2019 exam. Stable intracranial aneurysm in the region of the right MCA bifurcation.
== END 2019-11-16 10:58 | disposition home or self-care (01) ==
LOC: SCSMRI 10:57
PROVIDERS: ATTEND Radiology Radiation Oncology
DX: C79.31 Secondary malignant neoplasm of brain (principal); C56.9 Malignant neoplasm of unspecified ovary; I67.1 Cerebral aneurysm, nonruptured
CPT/HCPCS: 70553; 82565

== ENCOUNTER 2019-11-30 09:02 | Outpatient (CLI) | payer MEDICARE, BC ==
--- NOTE | 2019-11-30 11:34 | CT ---
CT OF THE CHEST AND ABDOMEN AND PELVIS WITH IV CONTRAST: Date: 11/30/2019 INDICATION: History of ovarian cancer. COMPARISON: Prior PET CT dated 12/23/2018. FINDINGS: CHEST: There are areas of scattered nonspecific subsegmental volume loss within both lungs. There is some sl ight interstitial prominence. There is a very tiny left pleural effusion. There is mild to moderate c ardiomegaly. There are coronary artery thoracic aortic calcifications. There are shotty appearing lym ph nodes within the mediastinum which are stable. One of the most prominent is seen along the anterio r margin of the right atrium on image 27 of series 2 measuring 1.6 cm. This is slightly less prominen t than on the comparison dated 12/23/2018. There is a pericardial loculated effusion along the left h eart border on image 42 of series 2, which is stable. ABDOMEN/PELVIS: The gallbladder is contracted. The pancreas, adrenal glands, and spleen reveal no definite focal abno rmality. Kidneys reveal no focal renal lesion. There is moderate to severe vascular calcification involving the abdominopelvic vasculature. No cecilia nodularity is seen involving the anterior omentum. There is a small anterior lower midline a bdominal wall hernia which is stable. There is scattered colonic diverticulosis without evidence of active diverticulitis. No enlarged lymph nodes or free fluid is evident. Reproductive structures are absent. The bladder is partially decompressed. There is diffuse osteopenia. There is scattered degenerative and osteoarthritic change. No suspicious osteolytic or osteoblastic lesion is identified. IMPRESSION: 1. No suspicious CT abnormality to suggest recurrent disease or metastatic disease. 2. Mild interstitial prominence with cardiomegaly and small left pleural effusion suspicious for an underlying component of CHF. Recommend correlation. 3. Shotty appearing lymph nodes within the mediastinum are largely stable. 4. Small loculated pericardial effusion is stable. 5. Stable colonic diverticulosis. 6. Stable anterior lower midline abdominal wall hernia. 7. Other chronic findings as above. POS: TPC
[2019-11-30] MEDS ORDERED: Iopamidol-370 76% 500 ML 1 ML ONE (13:26)
== END 2019-11-30 09:03 | disposition home or self-care (01) ==
LOC: BICCT 09:02
PROVIDERS: ATTEND Internal Medicine Hematology & Oncology
DX: C56.1 Malignant neoplasm of right ovary (principal); I51.7 Cardiomegaly; J90 Pleural effusion, not elsewhere classified; K57.30 Diverticulosis of large intestine without perforation or abscess without bleeding; K46.9 Unspecified abdominal hernia without obstruction or gangrene; J84.89 Other specified interstitial pulmonary diseases
CPT/HCPCS: 71260; 74177; 82565; Q9967

== ENCOUNTER 2020-02-08 09:09 | Outpatient (CLI) | payer MEDICARE, BC ==
--- NOTE | 2020-02-08 10:25 | MRI ---
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 Status post radiation therapy. Restag ing. COMPARISON: 11/16/2019 TECHNIQUE: Multiplanar, multisequence MRI of the brain performed pre- and post-IV injection of gadolinium based contrast agent. FINDINGS: There is an approximately 2.3 x 1.6 x 2.1 cm rim enhancing intra-axial left cerebellar mass with intr acellular methemoglobin thin rim and surrounding vasogenic edema. Again noted is the approximately 0.8 x 0.7 x 0.7 cm aneurysm at the bifurcation of the right middle c erebral artery. Again noted is the small to moderate-sized patchy region of encephalomalacia and gliosis in the right parieto-occipital junction, with multiple punctate focal hemosiderin stains. Mild ventriculomegaly on the basis of central brain parenchymal volume loss. Moderate chronic ischemi c white matter changes of the cerebrum. No restricted diffusion, new enhancing intra-axial mass, mass effect, midline shift, or extra-axial fluid collection. No interval change overall. IMPRESSION: 1) no interval change in the left cerebellar metastatic lesion. 2) no major interval change in the right middle cerebral artery aneurysm 3.) Old insult, probably old infarction, at right parieto-occipital junction. 4) moderate chronic ischemic white matter changes. 5) no interval change overall.
== END 2020-02-08 09:10 | disposition home or self-care (01) ==
LOC: MRI 09:09
PROVIDERS: ATTEND Radiology Radiation Oncology
DX: C79.31 Secondary malignant neoplasm of brain (principal); G93.89 Other specified disorders of brain; C80.1 Malignant (primary) neoplasm, unspecified
CPT/HCPCS: 70553; 82565

== ENCOUNTER 2020-05-01 11:15 | Outpatient (CLI) | payer MEDICARE, BC ==
[~2020-05-01 11:15] MED LIST: Magnevist 469MG/ML 20 ML VIAL ONE
--- NOTE | 2020-05-01 13:18 | MRI ---
MRI BRAIN WITH AND WITHOUT CONTRAST: DATE: 05/01/2020 HISTORY: 84-year-old female with ovarian cancer C 79.31 metastatic to the brain. Status post radiosurgery. Fol low-up. COMPARISON: 02/08/2020 TECHNIQUE: Multiplanar, multisequence MRI of the brain performed pre- and post-IV injection of gadolinium based contrast agent. FINDINGS: Approximately 0.9 x 0.7 x 0.6 cm aneurysm at trifurcation of right MCA. The approximately 2 x 2 0.2 x 2.1 cm rim-enhancing intra-axial mass in the left cerebellar hemisphere medially has not significantly changed in size. It has methemoglobin and a rim of hemosiderin. There is a moderately large region of surrounding vasogenic edema in the left cerebellar hemisphere, which has become slightly more extensive. There is involvement of the cerebellar vermis and brachium pontis, as well as dentate nucleus. It does not obstruct the fourth ventricle. There has bee n no other interval change. No obstructive hydrocephalus. Mild ventriculomegaly due to diffuse brain atrophy. Moderate chronic ischemic white matter changes of the cerebrum. Multiple punctate foci of remote hemorrhages in right parietal region. Small to moderate-sized region of encephalomalacia and gliosis in right parietal lobe consistent with old insult. No restricted diffusion, mass effect, midline shift, extra-axial fluid collection, or any new brain m etastases. IMPRESSION: 1) the neoplastic tumor mass in the left cerebellar hemisphere has not changed in size, but the surro unding vasogenic edema has slightly increased, perhaps representing post radiation changes. 2) no other interval change. 3) right middle cerebral artery aneurysm.
== END 2020-05-01 11:16 | disposition home or self-care (01) ==
LOC: MRI 11:15
PROVIDERS: ATTEND Radiology Radiation Oncology
DX: C56.9 Malignant neoplasm of unspecified ovary (principal); C79.31 Secondary malignant neoplasm of brain; G93.6 Cerebral edema; I67.1 Cerebral aneurysm, nonruptured
CPT/HCPCS: 70553; 82565; A9579

== ENCOUNTER 2020-07-24 08:46 | Outpatient (CLI) | payer MEDICARE, BC ==
--- NOTE | 2020-07-24 10:16 | CT ---
EXAM: CT Chest Abd Pelvis W Con PROVIDED CLINICAL HISTORY: History of ovarian cancer COMPARISON: 11/30/2019 FINDINGS: Right IJ implanted port is redemonstrated. Vascular calcification including coronary calcium is redem onstrated. Fluid density structures in the epicardial and anterior mediastinal fat appear stable. There is no evidence for thoracic lymph node enlargement. Prominent by number but not pathologically enlarged mediastinal lymph nodes are seen. The airway appears patent and of normal caliber. The lungs are free of suspicious opacity. No pleural fluid, pleural thickening or pneumothorax apparent. There is a small amount of free intraperitoneal fluid about the hepatic and splenic margins laterally . This appears increased with respect to the prior study. No cecilia peritoneal based soft tissue mass is evident. The solid abdominal organs demonstrate a stable CT appearance. There is no evidence for bowel obstruction or lymph node enlargement. Extensive colonic diverticulosi s and atherosclerosis are redemonstrated. The osseous structures demonstrate no concerning lytic or blastic lesions. IMPRESSION: Small amount of free intraperitoneal fluid adjacent to the hepatic and splenic margins, which could r eflect malignant ascites.
== END 2020-07-24 08:47 | disposition home or self-care (01) ==
LOC: BICCT 08:46
PROVIDERS: ATTEND Internal Medicine Hematology & Oncology
DX: C56.1 Malignant neoplasm of right ovary (principal); R18.8 Other ascites
CPT/HCPCS: 36415; 71260; 74177; 80053; 82248; 82565; 83615; 84100; 84550; 86304

== ENCOUNTER 2020-08-28 09:45 | Outpatient (CLI) | payer MEDICARE, BC ==
--- NOTE | 2020-08-28 13:15 | MRI ---
MRI OF BRAIN WITH AND WITHOUT CONTRAST: INDICATION: Brain mets. Ovarian cancer. COMPARISON: 05/01/2020. FINDINGS: Vasogenic edema in the left cerebellum again noted not significantly changed. Moderate chronic ische ayan white matter changes and cortical atrophy appears stable. Post contrast images again reveal a ring-enhancing mass in the left cerebellum. This ring enhancing mass has increased in size when compared to 05/01/2020. Maximal craniocaudal dimension on coronal imag e today was recorded at 9 cm. Previous recording was 2.4 cm. Sagittal measurements today were recor ded at 2.7 x 2.7 cm. The previous sagittal measurements were recorded at 2.1 x 2.0 cm. No other mass or abnormal enhancement. The right middle cerebral artery aneurysm is again seen and does not appear significantly changed. IMPRESSION: 1. Irregularly shaped ring enhancing mass in the left cerebellum has enlarged slightly since 0 as noted above. Vasogenic edema has not significantly changed. 2. Right middle cerebral artery aneurysm is again noted. 3. Cortical volume loss and moderate chronic ischemic white matter changes appear stable. POS: AGW
== END 2020-08-28 09:46 | disposition home or self-care (01) ==
LOC: MRI 09:45
PROVIDERS: ATTEND Radiology Radiation Oncology
DX: C79.31 Secondary malignant neoplasm of brain (principal); C56.9 Malignant neoplasm of unspecified ovary; G93.89 Other specified disorders of brain; I67.1 Cerebral aneurysm, nonruptured
CPT/HCPCS: 70553

== ENCOUNTER 2020-10-01 12:10 | Observation (INO) | payer MEDICARE, BC ==
[2020-10-01 12:41] LABS: #Basophils 0.1 thou/uL (0.0-0.2); #Lymphocytes 1.6 thou/uL (1.20-3.40); #Monocytes 1.2 thou/uL (0.11-0.59); #Neutrophils 7.8 thou/uL (1.40-6.50); %Basophils 0.6 % (0.0-1.0); %Eosinophils 0.2 % (0.0-10.0); %Lymphocytes 15.1 % (21.0-51.0); %Monocytes 11.4 % (0.0-10.0); %Neutrophils 72.7 % (42.0-75.0); Mean Corpuscular HGB CONC 32.8 g/dL (32.0-36.0); Mean Corpuscular Hemoglobin 31.8 pg (27.0-31.0); Mean Corpuscular Volume 96.9 fL (78.0-98.0); Mean Platelet Volume 8.3 fL (7.4-10.4); Platelet Count 255 thou/uL (130-400); RBC Distribution Width 11.7 % (11.5-14.5); White Blood Cell (WBC) Count 10.7 thou/uL (4.8-10.8)
[2020-10-01 13:00] LABS: ALT (SGPT) 14 U/L (8-55); AST (SGOT) 25 U/L (5-34); Albumin 3.5 g/dL (3.4-4.8); Alkaline Phosphatase 127 U/L (40-110); Anion Gap 17 mmol/L (10-20); BUN (Urea Nitrogen) 40 mg/dL (9.8-20.1); Bilirubin, Total 0.9 mg/dL (0.2-1.2); Calc. Creatinine Clearance 0 mL/min (70-130); Calcium 9.5 mg/dL (7.8-10.44); Carbon Dioxide 21 mmol/L (23-31); Chloride 106 mmol/L (98-107); Globulin 3.3 g/dL (2.4-3.5); Glucose 101 mg/dL (83-110); Lipase 39 U/L (8-78); Protein, Total 6.8 g/dL (6.0-8.3); Sodium 139 mmol/L (136-145)
[2020-10-01 14:18] LABS: CKMB 2.3 ng/mL (0-6.6)
--- NOTE | 2020-10-01 14:27 | RAD ---
PORTABLE CHEST: INDICATION: Abdominal pain with distention. FINDINGS: There is evidence of small bilateral effusions. The lungs appear clear of infiltrate. No evidence o f vascular congestion. Borderline cardiomegaly. MediPort catheter appears adequately positioned. IMPRESSION: Small bilateral pleural effusions. POS: AGW
[2020-10-01 15:37] LABS: Bilirubin Negative (Negative); Blood, Urine Negative (Negative); Clarity Clear (Clear); Glucose, Urine (Dipstick) Normal (Negative); Ketone, Urine Negative (Negative); Leukocyte Negative Leu/uL (Negative); Nitrite Negative (Negative); Protein, Urine (Dipstick) 10 mg/dL (Neg-Trace); Specific Gravity, Urine 1.024 (1.002-1.036); Urobilinogen Normal mg/dL (Less than 2)
--- NOTE | 2020-10-01 16:45 | CT ---
CT ABDOMEN AND PELVIS WITHOUT CONTRAST: History: Abdominal pain, swelling. Comparison: CT chest, abdomen, and pelvis, 07-24-2020. FINDINGS: Mild atelectasis lung bases. Small volume pericardial fluid. Moderate-large volume ascites, likely malignant in nature. There is fluid along the posterior diaphra gmatic hernia which contains fat and a portion of the gastric fundus. Normal ==== small bowel rotation. The liver and spleen have normal noncontrast appearance. No hydrour eteronephrosis. In the low pelvis adjacent to the sigmoid there are a few what appear to be solid nodules. There is a lso a possible solid mass abutting the sigmoid colon, Axial image 61. Evaluation for a carcinomatosis is limited without intravenous contrast. Extensive diverticular disease. No active current inflammation. The aortoiliac contour is nonaneurysmal. No acute osseous abnormality. High grade right hip degenerat norbert change with subcortical cyst formation and osteophytes. No suspicious osteolytic or osteoblastic lesions. IMPRESSION: 1. Moderate-large volume likely malignant ascites with nodules within the low dependent pelvis c oncerning for peritoneal carcinomatosis. 2. Possible right adnexal mass bordering the sigmoid colon, Axial image 62, concerning for metas tatic deposit. 3. Possible small solid nodule at the umbilicus, also concerning for a metastatic deposit. 4. Moderate posterior and small left anterior diaphragmatic hernia containing fluid. POS: H
--- NOTE | 2020-10-01 18:26 | PDOC.FPRHP ---
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 The patient was diagnosed with ovarian cancer ~ 10 years ago and reports undergoing surgery and chemotherapy. She reports that she was in remission until 2019 when a cerebellar mass was biopsied and confirmed to be metastatic ovarian cancer. The swelling has gotten so large that it has become painful and difficult to get comfortable. Denies any constipation or dysuria. Patient does not have much of an appetite bu t is able to tolerate liquids. She reports significant weight gain of 60 pounds over a short period of time. Reports difficulty lying flat and SOB due to abdominal swelling. Denies fever/chills, Chest pain. Dr. Crain- Recycling Specialist Dr. Warren- PCP @ [facility] Dr. Rincon & Zaki- Oncologists ED Course: Patient underwent CT of chest, abdomen, and pelvis in ED that revealed moderate- large volume likely malignant ascites with nodules within the low dependent pelvis concerning for peritoneal carcinomatosis; possible right adnexal mass bordering sigmoid colon; possible small solid nodule at the umbilicus, all concerning for mets No medication administered in ED as patient declined pain medication. - Allergies/Adverse Reactions Allergies Allergy/AdvReac Type Severity Reaction Status Date / Time hydrocodone Allergy Verified 02/17/19 10:06 - Home Medications Medication Instructions Recorded Confirmed Type Ergocalciferol (Vitamin D2) 50,000 unit PO Q7DAYS 02/18/19 10/02/20 History [Vitamin D2] Apixaban [Eliquis] 5 mg PO BID 10/02/20 10/02/20 History Calcium Carb/Vitamin D3/Vit K1 1 tab PO DAILY 10/02/20 10/02/20 History [Calcium + D Soft Chewable Tablet] Furosemide 20 mg PO Q2DAYS 10/02/20 10/02/20 History Gabapentin 100 mg PO BID 10/02/20 10/02/20 History Metoprolol Tartrate [Lopressor] 50 mg PO BID 10/02/20 10/02/20 History - History PMHx: Hx ovarian CA, CKDIII?, afib? PSHx: tonsillectomy, ovarian sx, knee replacement, brain bx in January 2019 (confirmed ovarian met), Right port placement FHx: Mother- HTN, sister- CA (unknown type) Social: No TAD. 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 - Review of Systems General: reports: weight/appetite/sleep changes. denies: fever/chills Eyes: denies: vision changes ENT: denies: nasal congestion, rhinorrhea Respiratory: reports: shortness of breath. denies: cough Cardiovascular: reports: edema. denies: chest pain Gastrointestinal: reports: nausea, abdominal pain. denies: vomiting, diarrhea, constipation, GI bleeding Genitourinary: reports: polyuria. denies: dysuria Skin: denies: rashes, lesions Musculoskeletal: reports: swelling. denies: arthritis/arthralgias Neurological: reports: numbness. denies: seizure, weakness Psychological: denies: anxiety, depression - Vital signs BP: 64/67 HR: 64 RR: 20 Tmax: 98.7 Pox: 97% on RA Wt: 97.5 kg - Physical Exam Constitutional: NAD, awake, alert and oriented, well developed HEENT: normocephalic and atraumatic, grossly normal vision, grossly normal hearing, MMM Neck: supple, FROM Heart: RRR, normal S1/S2 -Heart: 2+ pitting edema on the left up to the knee and nonpitting edema of the right Lungs: CTAB, no respiratory distress, no wheezing -Abdomen: Distended, firm Musculoskeletal: normal structure, normal tone Neurological: no focal deficit, normal sensation Skin: no rash/lesions, no jaundice Heme/Lymphatic: no unusual bruising or bleeding, no purpura, no petechia Psychiatric: normal mood and affect, good judgment and insight FMR H&P: Results - Labs Result Diagrams: 10/02/20 06:19 10/01/20 12:25 Lab results: WBC 10.7 thou/uL (4.8-10.8) 10/01/20 12:25 Hgb 14.0 g/dL (12.0-16.0) 10/01/20 12:25 Hct 42.6 % (36.0-47.0) 10/01/20 12:25 MCV 96.9 fL (78.0-98.0) 10/01/20 12:25 Plt Count 255 thou/uL (130-400) 10/01/20 12:25 Neutrophils % 72.7 % (42.0-75.0) 10/01/20 12:25 Sodium 139 mmol/L (136-145) 10/01/20 12:25 Potassium 5.0 mmol/L (3.5-5.1) 10/01/20 12:25 Chloride 106 mmol/L (98-107) 10/01/20 12:25 Carbon Dioxide 21 mmol/L (23-31) L 10/01/20 12:25 BUN 40 mg/dL (9.8-20.1) H 10/01/20 12:25 Creatinine 1.68 mg/dL (0.6-1.1) H 10/01/20 12:25 Glucose 101 mg/dL (83-110) 10/01/20 12:25 Calcium 9.5 mg/dL (7.8-10.44) 10/01/20 12:25 Total Bilirubin 0.9 mg/dL (0.2-1.2) 10/01/20 12:25 AST 25 U/L (5-34) 10/01/20 12:25 ALT 14 U/L (8-55) 10/01/20 12:25 Alkaline Phosphatase 127 U/L (40-110) H 10/01/20 12:25 CK-MB (CK-2) 2.3 ng/mL (0-6.6) 10/01/20 13:04 B-Natriuretic Peptide 117.8 pg/mL (0-100) H 10/01/20 13:03 Serum Total Protein 6.8 g/dL (6.0-8.3) 10/01/20 12:25 Albumin 3.5 g/dL (3.4-4.8) 10/01/20 12:25 Lipase 39 U/L (8-78) 10/01/20 12:25 Urine Ketones Negative mg/dL (Negative) 10/01/20 15:20 Urine Blood Negative (Negative) 10/01/20 15:20 Urine Nitrite Negative (Negative) 10/01/20 15:20 Ur Leukocyte Esterase Negative Giovany/uL (Negative) 10/01/20 15:20 - EKG Interpretation EKG: NSR, 62 bpm - Radiology Interpretation Other Status: image reviewed by me, report reviewed by me Additional comment: CT of Chest, Abdomen, and Pelvis: moderate-large volume likely malignant ascites with nodules within the low dependent pelvis concerning for peritoneal carcinomatosis; possible right adnexal mass bordering sigmoid colon; possible small solid nodule at the umbilicus, all concerning for mets FMR H&P: A/P - Problem List (1) Ascites Current Visit: Yes Status: Acute Code(s): R18.8 - OTHER ASCITES (2) Ovarian cancer Current Visit: Yes Status: Acute (3) Brain metastases Current Visit: Yes Status: Acute Code(s): C79.31 - SECONDARY MALIGNANT NEOPLASM OF BRAIN - Plan Malignant ascites 2/2 suspected ovarian CA metastasis - patient will need paracentisis - will f/u with reports IR consult tomorrow regarding procedure - will also consult patient's oncologist as below - tylenol prn, morphine prn, and zofran prn for pain and nausea Indeterminate troponins - EKG: NSR, 62 bpm - Trop: 0.032 - no active chest pain - will trend LEIF on CKDIII - likely 2/2 to poor PO intake - will give gentle fluids of LR @ 100 mls/hr due to ascites, encouraged PO intak e - repeat BMP tomorrow am Ovarian cancer w/ known cerebellar mass - Oncologist: Dr. Rincon & Zaki - will consult tomorrow - palliative care consulted for goals of care Suspected Hx of Afib - patient is unsure of history but is on eliquis and metoprolol - Recycling Specialist: Dr. Crain - NS rhythm on exam - will continue metoprolol but hold eliquis due to possible procedure tomorrow PCP: Dr. Warren - ANALYTICS MANAGER Code: Full IVF: LR @ 100 mls/hr DVT ppx: will hold patient's home eliquis due to likely procedure Diet: Regular Dispo: will admit patient for further medical management and observation; likely LOS < 48 hours FMR H&P: Upper Level - Plan Date/Time: 10/01/201825 Nadine Parra, have evaluated this patient and agree with findings/plan as outlined by public relations intern resident. Pertinent changes/additions are listed here. 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 Reports her abdomen was swollen similar to this before when she was diagnosed with ovarian cancer ~10 years ago. States over the last year she was diagnosed with a brain lesion related to recurrence of her ovarian CA and has since had progressive abdominal swelling. Reports the swelling has led to pain in her abdomen which prompted her to go to the ER for evaluation. She also endorses associated lower extremity edema, nausea, SOB, and decreased appetite. She denies any constipation, fever/chills, or dysuria. The patient had a CXR & CT abd/pelvis in the ER on arrival which was notable for small bilateral pleural effusions and diffuse metastatic lesions in the peritoneum and R adnexa with malignant ascites. Her labs were notable for a mi ldly elevated BNP of ~117 and a troponin of 0.032. Her BUN/Cr were slightly above baseline per chart review at 40/1.68. On exam her vitals were WNLs with the exception of a slightly elevated BP of 164/67. The patient was in NAD but did have marked ascites with diffuse TTP without guarding or rebound. She also had ~2+ pitting edema up to her knee on the left. Plan will be to admit to oncology unit for palliative and diagnostic paracentesis when IR is available. IR was reportedly consulted from the ED for this to be done JING. In the meantime will encourage increased PO hydration pending paracentesis for slight LEIF noted on labwork. Will continue mIVFs as well. Will trend elevated troponin but if decreases from initial level will stop trending as edema is only cardiac symptom with no reported CP on presentation. Will consult oncology in the AM to discuss plan of care going forward. Will resume home meds for chronic conditions. Anticipated LOS at least 2 midnights pending clinical course. Addendum - Attending - Attending Attestation Date/Time: 10/02/20 [id number] I personally evaluated the patient and discussed the management with Dr. 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 Reports her abdomen was swollen similar to this before when she was diagnosed with ovarian cancer any years ago. States over the last year she was diagnosed with a brain lesion related to recurrence of her ovarian CA and has since had progressive abdominal swelling. Reports the swelling has led to pain in her abdomen which prompted her to go to the ER for evaluation. She also endorses associated lower extremity edema, nausea, SOB, and decreased appetite. She denies any constipation, fever/chills, or dysuria. PMH/PSH/SH reviewed and agree with resident's documentation. BP 122/57 P61 RR16 98% RA Exam repeated by me and agree with resident's findings. Labs: WBC=10.7, H/H=14/42.6, Ffx=486, Pb=571, K=5.0, Cm=565, CO2=21, BUN/Cr=40/1.68, Ipps=902, AST/ALT= 24/14, WPF=647.8, CT abd/pelvis-mod/large volume of ascites with nodules in lower dependent portions of pelvis. A/P: 1) Malignant ascites- place in obs and plan for paracentesis via IR tomorrow. 2) Metastatic ovarian cancer- will notify patient oncologist of admission. 3) CKD- Mildly elevated above baseline; will give some gentle fluids.
[2020-10-01] MEDS ORDERED: Morphine 4 MG/ML VIAL SLOW IVP PRN (18:52)
[2020-10-01] MEDS ORDERED: Ondansetron PF 4 MG/2 ML Vial IVP PRN (18:53)
[2020-10-01] MEDS ORDERED: Acetaminophen 325 MG TAB PO PRN (19:28)
[2020-10-01] MEDS ORDERED: Lactated Ringer's 1,000 ML IV SCH (19:45)
[2020-10-01 19:51] LABS: Troponin I 0.031 ng/mL (< 0.028)
[2020-10-02] MEDS: Lactated Ringer's 1,000 ML IV SCH ×2 (00:36→08:47)
[2020-10-02 03:29] VITALS: BMI 41.3
[2020-10-02 06:38] LABS: #Lymphocytes 1.1 thou/uL (1.20-3.40); #Monocytes 0.7 thou/uL (0.11-0.59); #Neutrophils 4.9 thou/uL (1.40-6.50); %Basophils 0.6 % (0.0-1.0); %Eosinophils 0.6 % (0.0-10.0); %Lymphocytes 16.2 % (21.0-51.0); %Monocytes 10.1 % (0.0-10.0); %Neutrophils 72.5 % (42.0-75.0); Hemoglobin 11.5 g/dL (12.0-16.0); Mean Corpuscular HGB CONC 32.5 g/dL (32.0-36.0); Mean Corpuscular Hemoglobin 31.5 pg (27.0-31.0); Mean Corpuscular Volume 96.7 fL (78.0-98.0); Mean Platelet Volume 7.8 fL (7.4-10.4); Platelet Count 176 thou/uL (130-400); RBC Distribution Width 11.6 % (11.5-14.5); Red Blood Cell (RBC) Count 3.66 mill/uL (4.20-5.40); White Blood Cell (WBC) Count 6.7 thou/uL (4.8-10.8)
[2020-10-02 06:46] LABS: INR-International Normal Ratio 1.5; PTT 38.8 sec (22.9-36.1); Prothrombin Time 18.4 sec (12.0-14.7)
--- NOTE | 2020-10-02 06:47 | PDOC.FM ---
- Subjective Subjective: Patient doing well this morning. Denies dyspnea and states her abdominal pain is controlled. - Objective Vital Signs & Weight: Vital Signs (12 hours) Temp Pulse Resp BP Pulse Ox 10/02/20 04:00 98.2 F 62 16 131/61 95 10/01/20 23:26 97.5 F L 61 16 122/57 L 98 Weight Weight 96.026 kg Result Diagrams: 10/02/20 06:19 10/02/20 06:19 Phys Exam - Physical Examination Constitutional: NAD HEENT: moist MMs, sclera anicteric Neck: supple, full ROM Respiratory: no wheezing, clear to auscultation bilateral Cardiovascular: RRR, no significant murmur Gastrointestinal: soft, non-tender distended Musculoskeletal: pulses present Neurological: non-focal, moves all 4 limbs Psychiatric: normal affect Skin: no rash Dx/Plan - Plan Plan: #Malignant ascites 2/2 suspected ovarian CA metastasis - patient will need paracentisis, to be done by IR due to patient taking eliquis yesterday morning - Let Dr. Rincon know that patient is here, she will f/u outpatient when discharged - tylenol prn, morphine prn, and zofran prn for pain and nausea #Indeterminate troponins, resolved - Trop: 0.032>0.031 - no active chest pain #LEIF on CKDIII, improved - likely 2/2 to poor PO intake - encourage PO intake in the setting of ascites #Ovarian cancer w/ known cerebellar mass - Oncologist: Dr. Rincon & Zaki - Dr. Rincon aware that patient is here, will f/u outpatient - palliative care consulted for goals of care #Suspected Hx of Afib - patient is unsure of history but is on eliquis and metoprolol - Multi Line Claims Adjuster: Dr. Crain - NS rhythm on exam - will continue metoprolol but hold eliquis as patient is having paracentesis today; will restart eliquis pending IR recs PCP: Dr. Warren - GENETIC TECHNOLOGIST Code: Full IVF: SL DVT ppx: will hold patient's home eliquis due to paracentesis Diet: Regular Dispo: admitted for paracentesis, plan to discharge this afternoon Addendum - Attending - Attending Attestation Date/Time: 10/02/20 1214 I personally evaluated the patient and discussed the management with Dr. Galloway. I agree with the History, Examination, Assessment and Plan documented above with any addition or exceptions noted below. Patient here with suspected peritoneal carcinomatosis, likely 2/2 metastatic ovarian ca. She is not requiring O2 and reports feeling well. She will be going for diagnostic and therapeutic paracentesis with IR today, then should be stable for discharge. This plan has been discussed with her outpatient oncologist Dr. Rincon, who is in agreement. Hopeful discharge with further outpatient management once procedure complete.
[2020-10-02 07:00] LABS: Anion Gap 14 mmol/L (10-20); BUN (Urea Nitrogen) 36 mg/dL (9.8-20.1); Calc. Creatinine Clearance 46 mL/min (70-130); Calcium 8.5 mg/dL (7.8-10.44); Carbon Dioxide 23 mmol/L (23-31); Chloride 106 mmol/L (98-107); Glucose 101 mg/dL (83-110); Potassium 4.2 mmol/L (3.5-5.1); Sodium 139 mmol/L (136-145)
[2020-10-02] MEDS ORDERED: Gabapentin 100 MG CAP PO SCH (09:00)
[2020-10-02] MEDS ORDERED: Ergocalciferol 1.25 MG(50,000 UNITS) CAP PO SCH (09:00)
[2020-10-02] MEDS ORDERED: VIT K1 PO SCH (09:00)
[2020-10-02] MEDS ORDERED: Metoprolol Tartrate 50 MG TAB PO SCH (09:00)
[2020-10-02] MEDS ORDERED: Furosemide 20 MG TAB PO SCH (09:00)
[2020-10-02] MEDS ORDERED: CALCIUM CARB PO SCH (09:00)
[2020-10-02] MEDS ORDERED: VITAMIN D3 PO SCH (09:00)
[2020-10-02] MEDS ORDERED: Enoxaparin Sodium 40 MG/0.4 ML SYRINGE SC SCH (09:00)
[2020-10-02] MEDS ORDERED: Lidocaine 1% PF 5 ML VIAL ONE (11:30)
[2020-10-02] MEDS ORDERED: Sodium Bicarbonate 2.5 MEQ/5 ML VIAL ONE ×2 (11:30→13:10)
--- NOTE | 2020-10-02 13:13 | CON ---
DATE OF CONSULTATION: 10/02/2020 REASON FOR CONSULTATION: Ms. 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 I was asked to see her to discuss her options with treatment. HISTORY OF PRESENT ILLNESS: Ms. Krueger was initially diagnosed with ovarian cancer in 2014. She received neoadjuvant chemotherapy and debulking surgery in early 2015. She was basically felt to be in remission since that time. She did well until November of 2018 when she was found to have a 1.9 x 2.3 x 1.5 cm solid mass in the left cerebellum. The mass appeared intra-axial. This was followed over several months and slowly enlarged and subsequently, she underwent stereotactic biopsy with pathology at that time showing metastatic carcinoma consistent with ovarian origin. It was elected to treat her with radiosurgery and she was treated with 30 Gy in 5 fractions, which was completed on 03/23/2019. Her mass did decrease in size and was stable for quite some time until her most recent MRI on 08/28/2020. There, the lesion was felt to have increased in size to 2.9 x 2.7 cm. There was a small amount of vasogenic edema, which was stable. She had CT scans of the chest, abdomen, and pelvis in late June, which had showed no evidence of systemic progression. She was being evaluated for treatment options and I had seen her on 09/04/2020 and Neurosurgery was scheduled to see her in the near future. However, recently she began developing problems with increasing abdominal distention and shortness of breath because of this. She has had more difficulty taking care of herself because of the abdominal distention. She has had decreased appetite and has not been eating well. She has not lost weight. She subsequently was seen in the emergency room because of her abdominal distention and CT scan of the abdomen and pelvis showed a significant amount of ascites with several areas concerning for nodularity which was suspicious for possible disease recurrence. She is to undergo a paracentesis in the near future. Other than the abdominal distention and discomfort from that, she is having no discomfort. She denies any headaches or nausea or vomiting. She has no focal weakness or numbness. She voices no other complaints. PAST MEDICAL HISTORY: 1. Ovarian cancer as mentioned above. 2. Surgical debulking as mentioned above. 3. Stereotactic biopsy in 2019 of the solitary brain lesion. 4. 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 MEDICATIONS: 1. Lasix. 2. Gabapentin. 3. Metoprolol. 4. Eliquis. ALLERGIES: HYDROCODONE. SOCIAL HISTORY: She is a [employer], who lives in [place], [place]. She has no cigarette or alcohol use. She is accompanied by her caregiver. FAMILY HISTORY: Her sister from head and neck cancer. There is no other family history of malignancy. PHYSICAL EXAMINATION: VITAL SIGNS: Height is 5 feet, weight 211 pounds. Blood pressure is 116/55, pulse is 63, respirations are 18, temperature is 98.4, O2 saturation is 96%. CONSTITUTIONAL: She is alert and oriented and in no apparent distress. She is well-developed and well-nourished. Karnofsky performance status is 80%. HEENT: Eyes; pupils are equal, round, and reactive to light. Extraocular movements are intact. ENT; oral cavity and oropharynx are normal without lesion or erythema. Palate elevates symmetrically. Gingiva is intact. NECK: Supple without cervical or supraclavicular adenopathy. No thyromegaly. Larynx midline. LUNGS: Breathing nonlabored. There are crackles in both bases. Otherwise, clear to auscultation and percussion. CARDIOVASCULAR: Heart, regular rate and rhythm without murmur. She has bilateral pedal edema. BACK: No tenderness on fist percussion of her spine. LYMPHATIC: No axillary or inguinal adenopathy. ABDOMEN: Marked distention of the abdomen. Nontender and without mass. This is a clear change from 3 weeks ago. NEUROLOGIC: Cranial nerves 2 through 12 are grossly intact. Motor strength is 5/5 in both upper and lower extremities in all muscle groups tested. Gait is unchanged. LABORATORY DATA: CBC revealed a white blood cell count of 6700 with hemoglobin of 11.5, hematocrit of 35.4, and platelet count of 176,000. Chemistry group showed creatinine of 1.39 with a GFR of 36. Electrolytes were otherwise normal. Alkaline phosphatase is mildly elevated at 127. RADIOLOGIC DATA: CT scan of the abdomen and pelvis and chest x-ray from admission were both personally reviewed. She had small bilateral pleural effusions. She does have very significant ascites in the abdomen with some areas of nodularity concerning for recurrent disease. MRI of the brain showed a slight amount of enlargement in her cerebellar metastasis that now measures 2.9 cm. There is a small amount of vasogenic edema, which is stable. ASSESSMENT: Ms. Krueger is an 85-year-old female, who presents with signs and symptoms that is concerning for recurrent ovarian cancer in the abdomen with malignant ascites. She is scheduled for paracentesis later today. PLAN: She does have a solitary brain metastasis that is slightly enlarged in the past several months. Initially, her systemic disease seen under control and she was going to be evaluated by Neurosurgery next week to determine options. She has previously been treated with stereotactic radiosurgery. However, she appears to have systemic recurrence of her disease. Right now, her brain metastasis is asymptomatic. I think we have to establish the cause behind her ascites and determine if it is ovarian cancer. We would then have to discuss the case with Dr. Rincon to determine what our treatment options are if systemic recurrence is confirmed. Once this has been determined, we can make a decision regarding possible options for her brain metastasis. Thank you for this interesting consultation. Job ID: [id number]
[2020-10-02 13:46] LABS: SARS-CoV-2 MS2 Positive; SARS-CoV-2 N Gene Negative; SARS-CoV-2 S Gene Negative; SARS-CoV-2 by NAA Not Detected (NotDetected); SARS-CoV-2 orf1ab Negative
--- NOTE | 2020-10-02 15:25 | ULT ---
Paracentesis sonographic guided HISTORY: Symptomatic ascites. FINDINGS: After explaining the procedure and answering all questions, sonographic survey showed a lar ge amount of free fluid throughout the abdomen. Sterile technique, buffered local anesthesia, sonographic guidance, and a left lateral approach were used to carefully advance a 19-gauge Yueh needle and catheter into the free fluid. Catheter was left to drain a total volume of 3.7 L light bloody liquid. Catheter was removed with sma ll amount of fluid remaining. Patient tolerated the procedure well and was returned in improved condition. IMPRESSION : Technically successful sonographic guided paracentesis. 3.7 L light bloody liquid.
[2020-10-02 15:58] LABS: RBC Count-Automated (BF) 78055 /cu.mm; WBC/Nucleated-Auto (BF) 540 uL
[2020-10-02 16:01] LABS: Fluid, Protein 3.2 g/dL (Not Available)
[2020-10-02 16:07] LABS: Body Fluid Source Ascites Body Fluid; Clarity Cloudy/Turbid (Clear); Tube # EDTA
[2020-10-02 16:08] LABS: BF Color Red
[2020-10-02 16:11] LABS: BF Segmented Neutrophils 18 %; Cell Count Non Hematic 49 %; Lymphocytes 33 %
[2020-10-02 17:36] VITALS: BP 107/50; TEMP 98.7
--- NOTE | 2020-10-02 21:00 | CON ---
DATE OF CONSULTATION: REASON FOR CONSULT: Ovarian cancer. 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 She has been in remission for the last several months. She presented to this hospital with abdominal distention. CT scan showed large volume ascites. There was a possible right adnexal mass bordering the sigmoid colon with possible metastatic deposit around the umbilicus. The patient underwent a paracentesis and fluid was sent for cytology. She complains of poor appetite, but no other symptoms. PAST MEDICAL HISTORY: 1. 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 2. GERD. 3. Cataracts. PAST SURGICAL HISTORY: Radiosurgery to solitary bone metastasis, ovarian debulking. ALLERGIES: NO KNOWN DRUG ALLERGIES. HOME MEDICATIONS: 1. Eliquis. 2. Furosemide. 3. Gabapentin. 4. Lopressor. 5. Vitamin D. FAMILY HISTORY: Noncontributory. 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 Lives with family in [place]. REVIEW OF SYSTEMS: 12-point review of systems is negative except for noted in HPI. PHYSICAL EXAMINATION: VITAL SIGNS: Temperature 98.2, pulse is 66, respiratory rate 18, BP is 123/62. She is 99% on room air. GENERAL: A well-developed, well-nourished female, in no acute distress. HEENT: Normocephalic, atraumatic. Pupils are equal and reactive to light. NECK: Supple. CV: Regular rate and rhythm. LUNGS: Clear. ABDOMEN: Soft. Bowel sounds are positive. EXTREMITIES: 1+ bilateral lower extremity edema. NEUROLOGICAL: Nonfocal. PERTINENT LABORATORY DATA AND X-RAYS: WBCs are 6.7, hemoglobin 11.5, hematocrit 35.4, platelet count is 176,000, 72% neutrophils, 16% lymphocytes. PT is 18.4, INR is 1.5, and PTT is 38.8. Sodium 139, potassium 4.2, chloride is 106, CO2 is 23, BUN is 36, creatinine 1.39, calcium 8.5, bilirubin 0.9, AST is 25, ALT is 14, alkaline phosphatase is 127. BNP is 117. Serum total protein 6.8, albumin 3.5, globulin 3.3. Urine is negative. COVID-19 negative. RADIOLOGY DATA: Per HPI. ASSESSMENT: 1. History of ovarian cancer. 2. Ascites, status post paracentesis. 3. Brain metastasis. DISCUSSION: Patient has been seen by her radiation oncologist, Dr. Haines, who will follow up in the office. She has undergone a paracentesis which has been sent for cytology and is currently pending. We will check CA-125. She has an appointment already scheduled with Dr. Rincon next Thursday to discuss a restaging scan that was to be done in the outpatient setting. We will cancel that scan and she will follow up to discuss the cytology and serology findings. Thank you for the consult. Job ID: [id number] MTDD
--- NOTE | 2020-10-03 13:46 | DIS ---
DATE OF ADMISSION: 10/01/2020 DATE OF DISCHARGE: 10/02/2020 RESIDENT: Anisa Galloway MD ADMITTING ATTENDING: Imani Ch MD DISCHARGE ATTENDING: Jameson Cervantes MD CONSULTS: Dr. Haines from Radiation Oncology and Dr. Rincon from Oncology, Palliative Care. PROCEDURES: Ultrasound-guided paracentesis on 10/02/2020: 3.7 L of light bloody fluid drained from the patient's abdomen by Dr. Martinez. IMAGING: Abdomen and pelvis CT: 1. [id number] volume likely malignant ascites with nodules within the low dependent pelvis concerning for peritoneal carcinomatosis. 2. Possible right adnexal mass bordering the sigmoid colon, axial image 62, concerning for metastatic deposit. 3. Possible small solid nodule at the umbilicus, also concerning for metastatic deposit. 4. Moderate posterior and small left anterior diaphragmatic hernia containing fluid. 5. Chest x-ray on 10/01/2020: Small bilateral pleural effusions. PRIMARY DIAGNOSES: 1. Malignant ascites due to suspected ovarian carcinoma metastasis. 2. Indeterminate troponins. 3. Acute kidney injury on chronic kidney disease 3. SECONDARY DIAGNOSES: Ovarian cancer with known cerebellar mass, suspected history of atrial fibrillation. DISCHARGE MEDICATIONS: 1. Metoprolol tartrate 12.5 mg p.o. q.12 hours x60 tabs with instructions for patient to monitor her blood pressure at home and to start taking the 12.5 mg metoprolol the morning after discharge and if her evening blood pressure is greater than 120/80, then she can increase it to 25 mg and repeat the following day with the evening blood pressure still greater than , then she can increase her home 50 mg of metoprolol tartrate. 2. 5 mg of apixaban p.o. b.i.d. with instructions to begin taking it again in the evening after the day of discharge. 3. One tab of calcium carbonate/vitamin D3/vitamin K 1 p.o. daily. 4. 50,000 units of vitamin D2 p.o. q.7 days. 5. 20 mg of furosemide p.o. q.2 days. 6. 100 mg of gabapentin p.o. b.i.d. Discontinued medication: 1. 50 of mg metoprolol tartrate p.o. b.i.d. (see above notation by the 12.5 mg metoprolol tartrate ). HISTORY OF PRESENT ILLNESS/HOSPITAL COURSE: The patient is an 85-year-old female, with a known past medical history of ovarian cancer and a known cerebellar mass, who presented to the ER with progressively worsening abdominal pain and swelling and discomfort. She has also endorsed decreased appetite and dyspnea while lying flat. She had imaging: See above. The patient was admitted and the following day, Interventional Radiology was consulted who performed a paracentesis on the patient due to the patient having taking Eliquis the morning prior. They were able to retain 3.7 L of fluid from the patient's abdomen and that fluid was sent off for lab work of which the cytology is suggestive of malignancy. Dr. Haines did consult on the patient while she was in the hospital and recommended following up with Dr. Rincon and after she gets this, then discussion could be made about possible plans. Linda Rivas from Dr. Rincon's office did consult on the patient and recommended following up with Dr. Rincon outpatient to discuss a restaging scan and to discuss the cytology and serology finding from the paracentesis. The patient tolerated the paracentesis well and her blood pressures were monitored after the procedure and the patient was allowed to eat before being discharged home in guarded condition due to the patient's prognosis. DISPOSITION: Guarded. This underlying ovarian cancer and cytology from abdominal fluid suggestive of malignancy. DISCHARGE INSTRUCTIONS: 1. Location: Home. 2. Diet: Heart healthy. 3. Activities: As tolerated. 4. Follow up with Dr. Rincon and Dr. Haines and Dr. Olivia at scheduled appointments and follow up with her PCP within 7 days. Job ID: [id number]
== END 2020-10-02 19:06 | disposition home or self-care (01) ==
LOC: ERS 12:10 → ONC 17:35
PROVIDERS: ADMIT Family Medicine; ATTEND Family Medicine
PROC: 0W9G3ZX Drainage of Peritoneal Cavity, Percutaneous Approach, Diagnostic (ICD-10-PCS; principal; 2020-10-02)
DX: C56.9 Malignant neoplasm of unspecified ovary (principal); R18.0 Malignant ascites; C79.31 Secondary malignant neoplasm of brain; N18.30 Chronic kidney disease, stage 3 unspecified; N17.9 Acute kidney failure, unspecified; I48.91 Unspecified atrial fibrillation; K44.9 Diaphragmatic hernia without obstruction or gangrene; J90 Pleural effusion, not elsewhere classified; G62.9 Polyneuropathy, unspecified; Z92.21 Personal history of antineoplastic chemotherapy; Z79.01 Long term (current) use of anticoagulants; Z79.899 Other long term (current) drug therapy; Z88.5 Allergy status to narcotic agent; Z20.822 Contact with and (suspected) exposure to COVID-19
CPT/HCPCS: 49083; 51701; 71045; 74176; 80048; 80053; 81003; 82042; 82553; 83615; 83690; 83880; 84157; 84484 ×2; 85025 ×2; 85610; 85730; 86304; 87070; 87205; 88112; 88305; 89051; 93005; 97139 ×3; 99285; G0378 ×3; U0003; 36415; 85060; 87635

== ENCOUNTER 2020-10-12 11:36 | Day surgery (SDC) | payer MEDICARE, BC ==
--- NOTE | 2020-10-12 13:47 | ULT ---
Ultrasound-guided paracentesis: HISTORY: Ovarian cancer and recurrent ascites. FINDINGS: Informed consent obtained prior to the procedure. Preprocedural imaging demonstrated intrap eritoneal free fluid. An area was marked in the Right lower quadrant , and then meticulously prepped and draped in normal s terile fashion and anesthetized with 1% buffered lidocaine. With direct sonographic guidance, a 19-gauge needle and 5 Croatian Yueh catheter were advanced into the abdomen. After the return of fluid, the catheter was advanced, and the needle was removed. Approximately 4 L of serosanguineous fluid was aspirated. The introducer sheath was removed, and hemo stasis was achieved with direct pressure. A dry sterile dressing was placed. The patient tolerated the procedure well and without immediate complication. IMPRESSION: Technically successful ultrasound-guided paracentesis.
[2020-10-12 14:42] VITALS: BP 114/50; TEMP 97.6; BMI 33.3
[2020-10-12] MEDS ORDERED: FLU VACC QS2020-21(65YR UP)/PF 240 MCG/0.7 ML SYRINGE IM ONE (15:15)
== END 2020-10-12 14:10 | disposition home or self-care (01) ==
LOC: ULT 11:36
PROVIDERS: ATTEND Internal Medicine Hematology & Oncology
PROC: 0W9G3ZZ Drainage of Peritoneal Cavity, Percutaneous Approach (ICD-10-PCS; principal; 2020-10-12)
DX: R18.8 Other ascites (principal); C56.1 Malignant neoplasm of right ovary; C79.51 Secondary malignant neoplasm of bone; N18.9 Chronic kidney disease, unspecified; K21.9 Gastro-esophageal reflux disease without esophagitis; Z79.01 Long term (current) use of anticoagulants; Z79.899 Other long term (current) drug therapy; Z88.5 Allergy status to narcotic agent
CPT/HCPCS: 49083; 90471; 90662; 90732; G0008; G0009

== ENCOUNTER 2020-10-15 16:05 | Inpatient (IN) | payer MEDICARE, BC ==
[2020-10-15 18:33] LABS: #Lymphocytes 1.6 thou/uL (1.20-3.40); #Neutrophils 8.3 thou/uL (1.40-6.50); %Basophils 0.1 % (0.0-1.0); %Eosinophils 0.3 % (0.0-10.0); %Lymphocytes 14.3 % (21.0-51.0); %Monocytes 9.3 % (0.0-10.0); %Neutrophils 75.9 % (42.0-75.0); Hemoglobin 11.8 g/dL (12.0-16.0); Mean Corpuscular HGB CONC 33.6 g/dL (32.0-36.0); Mean Corpuscular Volume 95.3 fL (78.0-98.0); Mean Platelet Volume 7.3 fL (7.4-10.4); Platelet Count 339 thou/uL (130-400); RBC Distribution Width 11.8 % (11.5-14.5); Red Blood Cell (RBC) Count 3.68 mill/uL (4.20-5.40); White Blood Cell (WBC) Count 10.9 thou/uL (4.8-10.8)
--- NOTE | 2020-10-15 18:42 | RAD ---
PORTABLE CHEST: History: Hypotension, ovarian cancer. Comparison: 10-01-2020 FINDINGS: Heart size is enlarged. There are atherosclerotic changes of the aorta. Right sided Mediport catheter is seen. Some minimal blunting to the costophrenic angles. This was noted on the previous study, sim ilar to the prior study, probably related to some pleural thickening. No signs of failure. IMPRESSION: Cardiomegaly. No acute findings. Stable exam. POS: OFF
[2020-10-15 18:55] LABS: ALT (SGPT) 11 U/L (8-55); AST (SGOT) 19 U/L (5-34); Albumin 2.7 g/dL (3.4-4.8); Alkaline Phosphatase 119 U/L (40-110); Anion Gap 15 mmol/L (10-20); BUN (Urea Nitrogen) 65 mg/dL (9.8-20.1); Bilirubin, Total 0.4 mg/dL (0.2-1.2); Calc. Creatinine Clearance 0 mL/min (70-130); Calcium 8.1 mg/dL (7.8-10.44); Carbon Dioxide 21 mmol/L (23-31); Chloride 104 mmol/L (98-107); Globulin 2.8 g/dL (2.4-3.5); Glucose 137 mg/dL (83-110); Potassium 4.8 mmol/L (3.5-5.1); Protein, Total 5.5 g/dL (6.0-8.3); Sodium 135 mmol/L (136-145)
[2020-10-15 19:56] LABS: Bilirubin Negative (Negative); Blood, Urine Negative (Negative); Clarity Clear (Clear); Glucose, Urine (Dipstick) Normal (Negative); Ketone, Urine Negative (Negative); Leukocyte Negative Leu/uL (Negative); Nitrite Negative (Negative); Protein, Urine (Dipstick) Negative (Neg-Trace); Specific Gravity, Urine 1.019 (1.002-1.036); Urobilinogen Normal mg/dL (Less than 2)
--- NOTE | 2020-10-15 20:33 | PDOC.HHP ---
Hospitalist HPI - History of Present Illness Abnormal labs History of Present Illness: PCP: Dr. Adin Goetz Patient presents after being directed to the emergency room by Dr. Rincon her oncologist and stating that her kidneys are having problems. This is a new medical issue for this patient. She states that she knows she has ovarian cancer which has recently spread to the inside of her abdomen as well as having a mass in her brain. She states she has no pain, no chest pain, no shortness of breath, no nausea or vomiting. Accompaniment states that she has been somewhat weak in the past few days. She has never had any problems with her kidneys. She is able to produce urine at this time. She supposed to start chemotherapy tomorrow. ED Course: VITAL SIGNS ThuOct 15, 2020 16:08 VERO Zamudio, Chichi BP: 90/47, Pulse: 74, Resp: 18, Temp: 98.2 (Oral), Pain: 0, O2 sat: 98 on (Room Air), Time: 10/15/2020 16:08. VITAL SIGNS ThuOct 15, 2020 19:53 VERO Blanc Haley BP: 117/53, MAP: 69, Pulse: 67, Resp: 18, Temp: 98.6 (Oral), Pain: 0, O2 sat: 98 on (Room Air), Time: 10/15/2020 19:53. Medications: sodium chloride 0.9 % intravenous 1000 mL IV Fluid Infusion Given 18:36 10/15/2020 Hospitalist ROS - Review of Systems All other systems reviewed; all pertinent +/- noted in HPI/Subj - Medication Medications: Medication Instructions Recorded Confirmed Type Ergocalciferol (Vitamin D2) 50,000 unit PO Q702/18/19 10/12/20 History [Vitamin D2] Apixaban [Eliquis] 5 mg PO BID 10/02/20 10/12/20 History Calcium Carb/Vitamin D3/Vit K1 1 tab PO DAILY 10/02/20 10/12/20 History [Calcium + D Soft Chewable Tablet] Furosemide 20 mg PO Q2DAYS 10/02/20 10/12/20 History Gabapentin 100 mg PO BID 10/02/20 10/12/20 History Metoprolol Tartrate [Lopressor] 12.5 mg PO Q12HR #60 tab 10/02/20 10/12/20 Rx Allergies hydrocodone Allergy (Verified 10/11/20 14:32) Confusion Hospitalist History - Past Medical History Source: patient, RN notes reviewed Hospitalist Results - Labs Result Diagrams: 10/15/20 18:21 10/15/20 18:21 Lab results: WBC 10.9 thou/uL (4.8-10.8) H 10/15/20 18:21 Hgb 11.8 g/dL (12.0-16.0) L 10/15/20 18: Hct 35.1 % (36.0-47.0) L 10/15/20 18:21 MCV 95.3 fL (78.0-98.0) 10/15/20 18: Plt Count 339 thou/uL (130-400) 10/15/20 18: Neutrophils % 75.9 % (42.0-75.0) H 10/15/20 18:21 Sodium 135 mmol/L (136-145) L 10/15/20 18:21 Potassium 4.8 mmol/L (3.5-5.1) 10/15/20 18: Chloride 104 mmol/L (98-107) 10/15/20 18:21 Carbon Dioxide 21 mmol/L (23-31) L 10/15/20 18:21 BUN 65 mg/dL (9.8-20.1) H 10/15/20 18:21 Creatinine 2.48 mg/dL (0.6-1.1) H 10/15/20 18:21 Glucose 137 mg/dL (83-110) H 10/15/20 18: Calcium 8.1 mg/dL (7.8-10.44) 10/15/20 18: Total Bilirubin 0.4 mg/dL (0.2-1.2) 10/15/20 18: AST 19 U/L (5-34) 10/15/20 18: ALT 11 U/L (8-55) 10/15/20 18: Alkaline Phosphatase 119 U/L (40-110) H 10/15/20 18:21 Serum Total Protein 5.5 g/dL (6.0-8.3) L 10/15/20 18:21 Albumin 2.7 g/dL (3.4-4.8) L 10/15/20 18:21 Urine Ketones Negative mg/dL (Negative) 10/15/20 19:21 Urine Blood Negative (Negative) 10/15/20 19:21 Urine Nitrite Negative (Negative) 10/15/20 19:21 Ur Leukocyte Esterase Negative Giovany/uL (Negative) 10/15/20 19:21 - EKG Interpretation EK lead EKG interpreted by Emergency Department Physician at time of study, 12 lead EKG shows normal sinus rhythm, Interpretation: normal EKG, Conduction normal, ST segments normal, T waves normal, [place] normal, Clinical impression: Normal EKG, No acute findings for ischemia at this time. HR:.72. - Radiology Interpretation Chest x-ray Status: report reviewed by me Additional Comment: IMPRESSION: Cardiomegaly. No acute findings. Stable exam Hospitalist H&P A/P - Problem (1) LEIF (acute kidney injury) Code(s): N17.9 - ACUTE KIDNEY FAILURE, UNSPECIFIED Status: Acute (2) Ovarian cancer Status: Chronic
--- NOTE | 2020-10-15 21:52 | PDOC.FPRHP ---
- History of Present Illness Chief Complaint: Abnormal labs History of Present Illness: This is an 85yo F here today after being sent to the ER by oncologist Dr. Rincon due to abnormal labs that were obtained on 10/12 and showed an LEIF with Cr of 3.25. The patient has a hx of ovarian cancer dx 10yrs ago which remitted s/p surgery and chemo, and has now recurred. She is scheduled to start chemo tomorrow with Dr. Rincon. She has no hx of kidney disease that she is aware of and her baseline Cr is ~1.3 based on chart review. She is continuing to produce urine and denies any urinary sxs. Of note, her ovarian cancer has mets to her brain and has caused ascites. She has had two paracenteses: last Thursday and the Thursday before. Since the first one, she has not been eating well d/t food "tasting like soap". She denies SOB, cough, loss of smell, sick contacts, diarrhea. She states she had one episode of vomiting after paracentesis but her electric track switch maintainer which is accompanying her states she has had more than 1 episode. ED Course: 1L NS bolus - Allergies/Adverse Reactions Allergies Allergy/AdvReac Type Severity Reaction Status Date / Time hydrocodone Allergy Confusion Verified 10/11/20 14:32 - Home Medications Medication Instructions Recorded Confirmed Type Ergocalciferol (Vitamin D2) 50,000 unit PO Q7DAYS 02/18/19 10/16/20 History [Vitamin D2] Apixaban [Eliquis] 5 mg PO BID 10/02/20 10/16/20 History Calcium Carb/Vitamin D3/Vit K1 1 tab PO DAILY 10/02/20 10/16/20 History [Calcium + D Soft Chewable Tablet] Furosemide 20 mg PO Q2DAYS 10/02/20 10/16/20 History Gabapentin 100 mg PO BID 10/02/20 10/16/20 History Metoprolol Tartrate [Lopressor] 12.5 mg PO Q12HR #60 tab 10/02/20 10/16/20 Rx - History PMHx: ovarian ca w brain mets, possible HTN PSHx: tonsillectomy, excision of tumor from R ovary FHx: non contributory Social: denies alcohol, drug or tobacco use. Is a [employer] that lives in a convent in [place]. - Review of Systems General: reports: weight/appetite/sleep changes, fatigue. denies: fever/chills, night sweats Eyes: denies: vision changes ENT: denies: nasal congestion, rhinorrhea Respiratory: denies: cough, congestion, shortness of breath, exercise intolerance Cardiovascular: denies: chest pain, palpitation, edema, paroxysmal nocturnal dyspnea, orthopnea Gastrointestinal: denies: nausea, vomiting, diarrhea, constipation, abdominal pain Genitourinary: denies: incontinence, dysuria Skin: denies: rashes, lesions Musculoskeletal: denies: pain, tenderness, stiffness, swelling Neurological: reports: weakness - Vital signs BP: 112/67, MAP: 82, Pulse: 60, Resp: 16, Temp: 98.8 (Oral), Pain: 0, O2 sat: 98 on (Room Air) - Physical Exam Constitutional: awake, alert and oriented, well developed HEENT: normocephalic and atraumatic, PERRLA, EOMI, no scleral icterus, grossly normal vision, grossly normal hearing, oropharynx clear -HEENT: Mild dryness and cracking of tongue Neck: supple, FROM, trachea midline Chest: no-tender to palpation, no lesions Heart: RRR, normal S1/S2, no murmurs/rubs/gallops, pulses present (2+ dp b/l), no edema Lungs: CTAB, no respiratory distress, good air movement, no rales/rhonchi, no wheezing, no retractions Abdomen: soft, non-tender, bowel sounds present, no hernias -Abdomen: Mild distention, c/w hx of ascites Musculoskeletal: normal structure, normal tone Neurological: no focal deficit Skin: no rash/lesions, good turgor, capillary refill <2 seconds Heme/Lymphatic: no unusual bruising or bleeding Psychiatric: normal mood and affect FMR H&P: Results - Labs Result Diagrams: 10/15/20 18:21 10/15/20 18: Lab results: WBC 10.9 thou/uL (4.8-10.8) H 10/15/20 18: Hgb 11.8 g/dL (12.0-16.0) L 10/15/20 18: Hct 35.1 % (36.0-47.0) L 10/15/20 18:21 MCV 95.3 fL (78.0-98.0) 10/15/20 18:21 Plt Count 339 thou/uL (130-400) 10/15/20 18:21 Neutrophils % 75.9 % (42.0-75.0) H 10/15/20 18:21 Sodium 135 mmol/L (136-145) L 10/15/20 18:21 Potassium 4.8 mmol/L (3.5-5.1) 10/15/20 18:21 Chloride 104 mmol/L (98-107) 10/15/20 18:21 Carbon Dioxide 21 mmol/L (23-31) L 10/15/20 18:21 BUN 65 mg/dL (9.8-20.1) H 10/15/20 18:21 Creatinine 2.48 mg/dL (0.6-1.1) H 10/15/20 18:21 Glucose 137 mg/dL (83-110) H 10/15/20 18:21 Calcium 8.1 mg/dL (7.8-10.44) 10/15/20 18:21 Total Bilirubin 0.4 mg/dL (0.2-1.2) 10/15/20 18:21 AST 19 U/L (5-34) 10/15/20 18:21 ALT 11 U/L (8-55) 10/15/20 18:21 Alkaline Phosphatase 119 U/L (40-110) H 10/15/20 18:21 Serum Total Protein 5.5 g/dL (6.0-8.3) L 10/15/20 18:21 Albumin 2.7 g/dL (3.4-4.8) L 10/15/20 18:21 Urine Ketones Negative mg/dL (Negative) 10/15/20 19:21 Urine Blood Negative (Negative) 10/15/20 19:21 Urine Nitrite Negative (Negative) 10/15/20 19:21 Ur Leukocyte Esterase Negative Giovany/uL (Negative) 10/15/20 19:21 - Radiology Interpretation Chest x-ray Status: report reviewed by me (cardiomegaly. No acute process) FMR H&P: A/P - Plan This is an 85F who presented to the ED after abnormal lab findings by Dr. Rincon. LEIF on CKD Ddx: dehydration vs nephrotoxic meds vs malignancy - Cr of 3.25 on 10/12. 2.48 on admission. Baseline ~1.3 - CrCl 25 * avoid nephrotoxic drugs, renally dose medications but continue home lasix, see below - s/p 1L NS bolus in ED. - LR 100mL/h. Less than mIVF given ascites - Consult Dr. Rincon in am for recs - Renal U/S pending - am BMP to monitor Ovarian CA with brain mets - am consult to Dr. Rincon for recs - Gentle fluid resuscitation d/t ascites - Consider paracentesis if distention increases - Continue home lasix 20mg q2d despite LEIF Cardiomegaly - No dx of CHF - CXR shows cardiomegaly - BNP 100 - Continue home lasix - Monitor fluid status. Gentle fluid resuscitation HTN - Unclear whether pt has this dx - Continue home metoprolol - Monitor vitals and add prn anti-HTN if needed Dispo: medical obs. eLOS <48hrs IVF: LR 100mL/h Diet: Regular GI ppx: None DVT ppx: home Eliquis Code: DNAR, per pt. Advanced directive to be brought from [facility]. PCP: Dr. Warren FMR H&P: Upper Level - Plan Date/Time: 10/15/20 2150 I, Shelia Slater MD, have evaluated this patient and agree with findings/plan as outlined by internet sales manager resident. Pertinent changes/additions are listed here. This is an 85yo F wit PMH significant for ovarian cancer with mets to the abd and brain who presents to the ER after being sent by her oncologist for abnormal labs that were drawn on 10/12. She was found to have LEIF. She has no known kidney problems. She denies any dysuria, hematuria, change in urine odor, itching or irritations. She denies chest pain, NVD, abd pain. She does have decreased appetite. She reports that ever since she had her stomach drained she has had decreased appetite. The fluid they drained from her abdomen was blood. Diagnosed with ovarian cancer about 10 years ago and was in remission until 2019. She had received chemo in the past for her cancer. Dr. Crain- Obstetrical Anesthesiologist Dr. Warren- PCP @ [facility] [employer] [employer] Dr. Rincon & Zaki- Oncologists See internet sales manager note for full details. PE: no acute distress, dry MM, RRR, CTAB, abd - distended, normal BS, nontender, FROM, axox3 but does go on tangents and does not always answer appropriately, 1+ pitting edema in b/l LE and she has compression stockings on Plan: LEIF on CKD III Etiology for LEIF include hypovolemia vs dehydration and poor PO intake BUN/Cr elevated from baseline. Decreased from 3 days ago. UA normal. - Will give gentle mIVF and encourage PO hydration - Will monitor kidney function - Renally dose medications - Renal US pending - Consider nephro consult if not improving Ovarian cancer with mets to the abd and cerebellar mass - Will consult oncology, Dr. Rincon Normocytic anemia - likely from chronic disease Suspected Hx of Afib Patient is unsure of history but is on eliquis and metoprolol - Obstetrical Anesthesiologist: Dr. Crain - NS rhythm on exam and EKG Dispo: admit to onc, obs Code: DNAR - has directive per dog day care attendant. Will place palliative care consult as well Case discussed with Dr. Ziegler
[2020-10-16 00:06] VITALS: BMI 37.8
[2020-10-16] MEDS ORDERED: Acetaminophen 650 MG Suppository PR PRN (00:18)
[2020-10-16] MEDS: Lactated Ringer's 1,000 ML IV SCH ×3 (01:07→14:08)
[2020-10-16] MEDS ORDERED: Furosemide 20 MG TAB PO SCH ×2 (01:15→09:00)
[2020-10-16 01:20] LABS: Hemoglobin A1c 5.3 % (4.0-6.0)
[2020-10-16] MEDS ORDERED: Apixaban 2.5 MG TAB PO SCH ×5 (06:30→21:00)
[2020-10-16] MEDS ORDERED: Apixaban 5 MG TAB PO SCH ×2 (06:30→09:00)
--- NOTE | 2020-10-16 06:55 | PDOC.FM ---
- Subjective Subjective: Pt is comfortable this morning, but does not have much of an appetite c/o discomfort in abdomen when bending over or movement due to the fullness. cr 2.13 with BUN 62 this morning, slightly improved from 2.48. Onc and nephro aware of pt and consulted this morning. - Objective MAR Reviewed: Yes Vital Signs & Weight: Vital Signs (12 hours) Temp Pulse Resp BP Pulse Ox 10/16/20 04:00 98.0 F 59 L 16 109/53 L 97 10/16/20 00:19 99 10/15/20 23:23 98.5 F 59 L 18 118/56 L 99 Weight Weight 93.712 kg I&O: 10/14/20 10/15/20 10/16/20 06:59 06:59 06:59 Intake Total 620 Balance 620 Result Diagrams: 10/17/20 05:05 10/17/20 05:05 Phys Exam - Physical Examination Constitutional: NAD HEENT: moist MMs, sclera anicteric Neck: supple, full ROM Respiratory: no wheezing, no rales, no rhonchi, clear to auscultation bilateral Cardiovascular: RRR, no rub Gastrointestinal: soft, non-tender, positive bowel sounds distended Musculoskeletal: edema present Neurological: moves all 4 limbs Psychiatric: normal affect Skin: normal turgor, cap refill <2 seconds Dx/Plan (1) LEIF (acute kidney injury) Code(s): N17.9 - ACUTE KIDNEY FAILURE, UNSPECIFIED Status: Acute (2) Anemia Code(s): D64.9 - ANEMIA, UNSPECIFIED Status: Acute (3) Ascites Code(s): R18.8 - OTHER ASCITES Status: Acute (4) Brain metastases Code(s): C79.31 - SECONDARY MALIGNANT NEOPLASM OF BRAIN Status: Acute (5) Ovarian cancer Status: Chronic - Plan Plan: LEIF on CKD III Etiology for LEIF include hypovolemia vs dehydration and poor PO intake BUN/Cr elevated from baseline. Decreased from 3 days ago. UA normal. - Will give gentle mIVF and encourage PO hydration - Will monitor kidney function, slightly improved Cr from 2.48-> 2.13 - Renally dose medications, nephrology consulted, Dr. Wray for further recs. - Renal US pending Ovarian cancer with mets to the abd and cerebellar mass - Will consult oncology, Dr. Sergey Rivas to see pt in hx, appreciate recommendations Normocytic anemia - likely from chronic disease Suspected Hx of Afib, HTN Patient is unsure of history but is on eliquis and metoprolol - Tire Building Supervisor: Dr. Crain - NS rhythm on exam and EKG Dispo: admit to onc, obs Code: DNAR - has directive per career and transition teacher. Palliative care consulted Addendum - Attending - Attending Attestation Date/Time: 10/17/20 1941 I personally evaluated the patient and discussed the management with Dr. Dodge on 10/16/2020 I agree with the History, Examination, Assessment and Plan documented above with any addition or exceptions noted below - Patient denies any complaints. Afebrile VSS. A/P: 1) LEIF on CKD - impoving slowly; continue IVF. Appreciate nephrology assistance and recs. 2) Metastatic ovarian cancer - defer chemo until renal function improved.
[2020-10-16 06:56] LABS: Hemoglobin 10.5 g/dL (12.0-16.0); Mean Corpuscular HGB CONC 33.1 g/dL (32.0-36.0); Mean Corpuscular Hemoglobin 31.9 pg (27.0-31.0); Mean Corpuscular Volume 96.4 fL (78.0-98.0); Mean Platelet Volume 7.2 fL (7.4-10.4); Platelet Count 273 thou/uL (130-400); RBC Distribution Width 11.8 % (11.5-14.5); Red Blood Cell (RBC) Count 3.31 mill/uL (4.20-5.40); White Blood Cell (WBC) Count 7.9 thou/uL (4.8-10.8)
[2020-10-16 07:17] LABS: Anion Gap 14 mmol/L (10-20); BUN (Urea Nitrogen) 62 mg/dL (9.8-20.1); Calc. Creatinine Clearance 30 mL/min (70-130); Calcium 7.7 mg/dL (7.8-10.44); Carbon Dioxide 21 mmol/L (23-31); Chloride 106 mmol/L (98-107); Glucose 102 mg/dL (83-110); Potassium 4.9 mmol/L (3.5-5.1); Sodium 136 mmol/L (136-145)
[2020-10-16] MEDS: Calcium Carbonate 600 MG + Vit D TAB PO SCH (08:21)
[2020-10-16] MEDS: Gabapentin 100 MG CAP PO SCH ×2 (08:22→20:58)
[2020-10-16 08:48] LABS: Band 5 % (5-11); Eosinophils 2 % (0-10); Lymphocytes 8 % (21-51); MDiff Complete? YES; Metamyelocyte 1 % (0-0); Monocytes 12 % (0-10); Neutrophil 72 % (42-75); Platelet Morphology Comment Appears Adequate; Polychromasia SLIGHT = 2-3 cells (100X) (0-2/hpf)
[2020-10-16] MEDS ORDERED: Metoprolol Tartrate 25 MG TAB PO SCH (09:00)
--- NOTE | 2020-10-16 10:09 | CON ---
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 Her creatinine back on October 12, 2020, was 3.25. She was sent to our clinic. After evaluation, I felt that she may simply have hemodynamically-mediated renal dysfunction. I did review urinalysis couple weeks ago and was relatively benign with specific gravity 1.025 suggesting a prerenal azotemia. Due to the decreased p.o. intake, acute kidney injury, and low blood pressure, it was decided to admit the patient for volume repletion. REVIEW OF SYSTEMS: Positive for generalized malaise, decreased p.o. intake. No nausea. No vomiting. Positive for abdominal fullness. No syncopal episode. No fever or chills. No chest pain. No shortness of breath. Occasional joint pains. HOME MEDICATIONS: Included, 1. Eliquis 5 mg b.i.d. 2. Metoprolol 50 mg b.i.d. 3. Gabapentin 100 mg two capsules t.i.d. 4. Furosemide 20 mg tab every other day. 5. Vitamin D 1.25 mg one capsule q.weekly. 6. Vitamin D3 1000 international units daily. PAST MEDICAL HISTORY: 1. Ovarian cancer with peritoneal carcinomatosis. 2. Ascites. 3. History of brain mets. 4. Hypertension. 5. Chronic leg edema. PAST SURGICAL HISTORY: Status post large volume paracentesis done a week ago - 4 L was removed, status post exploratory laparotomy with oophorectomy, status post colonoscopy. 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 Lives with other two [facility]. No smoking. No alcohol intake. Education, college. No IV drug abuse. No blood transfusion. FAMILY HISTORY: No family history of ESRD. ALLERGIES: NONE. TRAUMA: None. IMMUNIZATION: Up to date. HOSPITALIZATIONS: Please see past medical history. PHYSICAL EXAMINATION: VITAL SIGNS: Blood pressure is 96/54, heart rate 69, respiratory rate 15, temperature 97.8, O2 saturation 98%. GENERAL: The patient is awake, alert, supine, obese, comfortable, not in distress. SKIN: Adequate turgor. HEENT: She has pinkish conjunctivae. Anicteric sclerae. No neck mass. No carotid bruits. No JVD. CHEST: No deformities. LUNGS: Clear breath sounds. HEART: Normal sinus rhythm. No murmur. No gallops. No rubs. ABDOMEN: Globular, soft, nontender. No masses. EXTREMITIES: Positive for bilateral leg edema. NEUROLOGICAL: Awake, oriented to 3 spheres. Moving all extremities. No tremors. No asterixis. No ataxia. LABORATORY DATA: On October 16, 2020, white count 7.9, hemoglobin 10.5 sodium 136, potassium 4.9, chloride 106, carbon dioxide 21, BUN 62, creatinine 2.13, glucose 102, calcium 7.7. Further review of creatinine on October 15, 2020, 2.48. On October 12, 2020, creatinine was 3.25. Urinalysis of October 15, 2020, no casts noted, specific gravity 1.019, no protein. Chest x-ray of October 15, 2020, cardiomegaly without acute findings. ASSESSMENT AND PLAN: 1. Acute kidney injury, consider hemodynamically-mediated renal dysfunction. Agree with empiric volume repletion. Renal function is slowly improving. I will consider holding off the patient's diuretic as well as metoprolol due to volume depletion and low blood pressure with this patient. 2. We will also consider giving an albumin infusion together with lactated Ringer's. We will give albumin 25 g IV q.6 hours x4 doses. There is no indication for any dialytic intervention with this patient. Recheck CBC and basic met in a.m. Job ID: [id number] MTDD
--- NOTE | 2020-10-16 13:08 | PDOC.FMACP ---
Advance Care Planning - Problem (1) Anemia Status: Acute Code(s): D64.9 - ANEMIA, UNSPECIFIED (2) Ascites Status: Acute Code(s): R18.8 - OTHER ASCITES (3) Brain metastases Status: Acute Code(s): C79.31 - SECONDARY MALIGNANT NEOPLASM OF BRAIN (4) Ovarian cancer Status: Chronic - Note Participants: patient, palliative care Summary: Palliative care revisited Advanced Care Planning. The diagnosis, prognosis and goals of care were discussed. Appropriate forms and documentation to accomplish the goals of care were discussed. All questions were answered. Confirmed DNAR status, assisted iwth completion of OOHDNAR Confirmed MPOA and Directive to physician. Copies placed on chart for medical records. Time Spent (mins): 15
[2020-10-16] MEDS: Albumin 25% 25 GM/100 ML BOT IVPB SCH ×2 (14:08→20:59)
--- NOTE | 2020-10-16 16:36 | CON ---
DATE OF CONSULTATION: REASON FOR CONSULTATION: Relapsed serous carcinoma of the ovary. HISTORY OF PRESENT ILLNESS: Ms. Krueger is a pleasant 85-year-old female with a history of ovarian cancer. She had recent progression earlier this month when she was admitted here for ascites. Cytology showed recurrent ovarian cancer. She was set to start carboplatin and Avastin and came for a chemo teach to our clinic on the . Her chemistry showed an elevation in creatinine, so she was referred to Dr. Wray. The patient has ascites and had multiple paracenteses over the past several weeks. Dr. Wray felt this was too intravascular dehydration and sent her to the hospital for admission. She was started on gentle hydration and albumin with improvement in her creatinine. She has also had poor appetite, generalized weakness, and occasional shortness of breath. No chest pain. PAST MEDICAL HISTORY: 1. 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 2. Malignant ascites. 3. GERD. 4. Cataracts. 5. Chronic bilateral lower extremity edema. PAST SURGICAL HISTORY: 1. Radiosurgery to solitary brain metastasis. 2. Ovarian debulking. ALLERGIES: NO KNOWN DRUG ALLERGIES. HOME MEDICATIONS: 1. Calcium. 2. Eliquis. 3. Furosemide. 4. Gabapentin. 5. Metoprolol. 6. Vitamin D. FAMILY HISTORY: Noncontributory. SOCIAL HISTORY: Single. No children. No smoking. No alcohol. REVIEW OF SYSTEMS: A 12-point review of systems is negative except for noted in HPI. PHYSICAL EXAMINATION: VITAL SIGNS: Temperature 97.7, pulse is 69, respiratory rate 15, BP is 91/53, and she is 97% on room air. GENERAL: A well-developed, well-nourished female, in no acute distress. HEENT: Normocephalic and atraumatic. Pupils are equal and reactive to light. She has poor dentition. NECK: Supple. CV: Regular rate and rhythm. LUNGS: Clear. ABDOMEN: Obese, slightly distended. Bowel sounds are positive. EXTREMITIES: Bilateral lower extremity edema. NEUROLOGIC: Nonfocal. PERTINENT LABORATORY DATA AND X-RAYS: WBCs are 7.9, hemoglobin 10.5, hematocrit 31.9, platelet count 273,000, 72% neutrophils, 5% bands, and 8% lymphocytes. Sodium 136, potassium 4.9, chloride 106, CO2 is 21, BUN 62, creatinine 2.13, and calcium 7.7. Bilirubin 0.4, AST is 19, ALT is 11, and alkaline phosphatase is 119. BNP is 156. Serum total protein is 5.5, albumin 2.4, and globulin 2.8. The urine was negative. ASSESSMENT: 1. Recurrent metastatic ovarian cancer with malignant ascites. 2. Acute kidney injury. DISCUSSION: The patient has been seen by Dr. Wray who feels her kidney injury is probably hemodynamically mediated. He has begun gentle volume repletion with albumin infusion. The patient states her appetite is improving and she has had several meals today. She was due for chemotherapy this week, but this will be postponed until her kidney function returns to her baseline. This has all been explained to the patient and her caregiver at bedside. Also discussed the case with Dr. Rincon. Thank you for the consult. Job ID: [id number]
[2020-10-16] MEDS: Apixaban 2.5 MG TAB PO SCH (20:58)
[2020-10-17] MEDS: Lactated Ringer's 1,000 ML IV SCH ×3 (02:59→19:14)
[2020-10-17] MEDS: Albumin 25% 25 GM/100 ML BOT IVPB SCH ×2 (02:59→08:30)
[2020-10-17] MEDS: Acetaminophen 325 MG TAB PO PRN ×2 (03:02→16:10)
[2020-10-17 05:29] LABS: #Lymphocytes 1.1 thou/uL (1.20-3.40); #Monocytes 0.7 thou/uL (0.11-0.59); #Neutrophils 4.9 thou/uL (1.40-6.50); %Basophils 0.4 % (0.0-1.0); %Eosinophils 0.3 % (0.0-10.0); %Lymphocytes 16.1 % (21.0-51.0); %Monocytes 10.4 % (0.0-10.0); %Neutrophils 72.9 % (42.0-75.0); Hemoglobin 8.4 g/dL (12.0-16.0); Mean Corpuscular HGB CONC 33.3 g/dL (32.0-36.0); Mean Corpuscular Hemoglobin 31.6 pg (27.0-31.0); Mean Platelet Volume 6.8 fL (7.4-10.4); Platelet Count 221 thou/uL (130-400); RBC Distribution Width 11.8 % (11.5-14.5); Red Blood Cell (RBC) Count 2.66 mill/uL (4.20-5.40); White Blood Cell (WBC) Count 6.7 thou/uL (4.8-10.8)
[2020-10-17 05:48] LABS: Anion Gap 13 mmol/L (10-20); BUN (Urea Nitrogen) 59 mg/dL (9.8-20.1); Calc. Creatinine Clearance 30 mL/min (70-130); Calcium 7.9 mg/dL (7.8-10.44); Carbon Dioxide 23 mmol/L (23-31); Chloride 106 mmol/L (98-107); Glucose 103 mg/dL (83-110); Potassium 4.5 mmol/L (3.5-5.1); Sodium 137 mmol/L (136-145)
--- NOTE | 2020-10-17 07:10 | PDOC.FM ---
- Subjective Subjective: No acute overnight events resting well, has not been up very much since admission, however appetite improved. holding hcemo until renal function back to baseline per onc recs. lower BP's however asymptomatic. drop in hgb, no overt bleeding. - Objective MAR Reviewed: Yes Vital Signs & Weight: Vital Signs (12 hours) Temp Pulse Resp BP Pulse Ox 10/16/20 23:52 98.2 F 74 16 102/50 L 96 10/16/20 20:00 98.1 F 78 16 99/47 L 98 Weight Weight 93.712 kg I&O: 10/16/20 10/17/20 10/18/20 06:59 06:59 06:59 Intake Total 620 3320 Balance 620 3320 Result Diagrams: 10/17/20 05:05 10/17/20 05:05 Phys Exam - Physical Examination Constitutional: NAD HEENT: PERRLA, moist MMs Neck: supple, full ROM Respiratory: no wheezing, no rales, no rhonchi, clear to auscultation bilateral Cardiovascular: RRR 3/6 sys murmur Gastrointestinal: non-tender, positive bowel sounds distended, but still soft. Musculoskeletal: pulses present, edema present Neurological: moves all 4 limbs Psychiatric: normal affect Skin: normal turgor Dx/Plan (1) LEIF (acute kidney injury) Code(s): N17.9 - ACUTE KIDNEY FAILURE, UNSPECIFIED Status: Acute (2) Anemia Code(s): D64.9 - ANEMIA, UNSPECIFIED Status: Acute (3) Ascites Code(s): R18.8 - OTHER ASCITES Status: Acute (4) Brain metastases Code(s): C79.31 - SECONDARY MALIGNANT NEOPLASM OF BRAIN Status: Acute (5) Ovarian cancer Status: Chronic - Plan Plan: LEIF on CKD III Etiology for LEIF include hypovolemia vs dehydration and poor PO intake BUN/Cr elevated from baseline. Decreased from 3 days before admission. UA normal. - Will give gentle IVF and encourage PO hydration - Will monitor kidney function, slightly improved Cr from 2.48-> 2.13-> 2.11 - Renally dose medications, nephrology consulted, Dr. Wray for further recs. - Albumin tranfusion X4 doses ordered - LR @ 75 ml/hr Ovarian cancer with mets to the abd and cerebellar mass - Will consult oncology, Dr. Sergey Rivas to see pt in hx, appreciate recommendations - Will hold chemo until renal function returns to baseline. Normocytic anemia - likely from chronic disease - Hgb has decreased since admission and IVF's. will continue to trend and transfuse if hgb <7. Suspected Hx of Afib, HTN Patient is unsure of history but is on eliquis and metoprolol - Medical Facilities Section Director: Dr. Crain - NS rhythm on exam and EKG Dispo: admit to onc, obs Code: DNAR - has directive per healthcare architect. OOHDNR signed 10/16. Palliative care consulted Addendum - Attending - Attending Attestation Date/Time: 10/17/20 1122 I personally evaluated the patient and discussed the management with Dr. Dodge I agree with the History, Examination, Assessment and Plan documented above with any addition or exceptions noted below - Patient without complaints. States that apopetite is improving. Afebrile VSS. A/P: 1) LEIF - slowly improving; appreciate renal assistance. Continue OVF nad albumin. 2) Metastatic ovarian cancer - defer chemo until kidney function improved as per oncology.
[2020-10-17] MEDS: Gabapentin 100 MG CAP PO SCH ×2 (08:30→20:13)
[2020-10-17] MEDS: Apixaban 2.5 MG TAB PO SCH ×2 (08:30→20:14)
[2020-10-17] MEDS: Calcium Carbonate 600 MG + Vit D TAB PO SCH (08:30)
--- NOTE | 2020-10-17 09:01 | PRG ---
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 Empiric volume repletion with crystalloids and colloids were done with improvement of the renal function. Review of her urine sediment was relatively benign. Please note, this patient has had received carboplatin in the past. I doubt she has an ATN. Renal function today shows a creatinine of 2.11. No complaints of chest pain or shortness of breath. The sister is feeling better. Denies any abdominal pain or abdominal fullness. OBJECTIVE: VITAL SIGNS: Blood pressure is 96/49, heart rate 79, respiratory rate 16, temperature 98.3, and O2 saturation 96%. GENERAL: The patient is awake, alert, comfortable, obese, not in distress. SKIN: Adequate turgor. HEENT: Slightly pale conjunctivae. Anicteric sclerae. NECK: No neck mass. No carotid bruits. No JVD. CHEST: No deformities. LUNGS: Clear breath sounds. No wheezing. No crackles. HEART: Normal sinus rhythm. No murmur. No gallops. No rubs. ABDOMEN: Globular, soft, and nontender. No masses. EXTREMITIES: No edema. No deformities. MEDICATIONS: Medications of October 17, 2020 was reviewed. LABORATORY DATA: Laboratories of October 17, 2020, white count 6.7 and hemoglobin 8.4. Sodium 137, potassium 4.5, chloride 106, carbon dioxide 23, BUN 59, creatinine 2.11, and calcium 7.9. October 15, 2020, albumin was 2.7. ASSESSMENT AND PLAN: 1. Acute kidney injury - secondary to hemodynamically-mediated renal dysfunction. Diuretics and beta blockers have been placed on hold due to the low blood pressure. Agree with current management. Continue IV volume repletion. I would suggest we increase the lactated Ringer's from 75 to 125 mL/h due to the low blood pressure this morning. There is no indication for any dialytic intervention. 2. Ovarian cancer with distant metastasis - continue supportive care. Oncology is following. Once the renal function stabilizes to near normal, the patient being considered for chemotherapy next week. 3. Recheck CBC and basic metabolic in a.m. Job ID: [id number]
[2020-10-17 17:13] LABS: SARS-CoV-2 PCR by NAA Not Detected (NotDetected)
[2020-10-18] MEDS: Lactated Ringer's 1,000 ML IV SCH ×3 (02:21→19:44)
[2020-10-18 05:27] LABS: #Monocytes 0.8 thou/uL (0.11-0.59); #Neutrophils 5.7 thou/uL (1.40-6.50); %Basophils 0.1 % (0.0-1.0); %Eosinophils 0.2 % (0.0-10.0); %Lymphocytes 13.7 % (21.0-51.0); %Neutrophils 75.1 % (42.0-75.0); Hemoglobin 9.9 g/dL (12.0-16.0); Mean Corpuscular HGB CONC 33.2 g/dL (32.0-36.0); Mean Corpuscular Hemoglobin 31.8 pg (27.0-31.0); Mean Corpuscular Volume 95.8 fL (78.0-98.0); Platelet Count 259 thou/uL (130-400); RBC Distribution Width 11.8 % (11.5-14.5); Red Blood Cell (RBC) Count 3.11 mill/uL (4.20-5.40); White Blood Cell (WBC) Count 7.6 thou/uL (4.8-10.8)
[2020-10-18 05:38] LABS: Anion Gap 12 mmol/L (10-20); BUN (Urea Nitrogen) 50 mg/dL (9.8-20.1); Calc. Creatinine Clearance 34 mL/min (70-130); Calcium 8.3 mg/dL (7.8-10.44); Carbon Dioxide 23 mmol/L (23-31); Chloride 105 mmol/L (98-107); Glucose 106 mg/dL (83-110); Potassium 4.3 mmol/L (3.5-5.1); Sodium 136 mmol/L (136-145)
--- NOTE | 2020-10-18 06:58 | PDOC.FM ---
- Subjective Subjective: no acute overnight event s lower BP's but asymptomatic, holding BP medications no concerns this morning per pt. renal function improving. - Objective Vital Signs & Weight: Vital Signs (12 hours) Temp Pulse Resp BP Pulse Ox 10/17/20 20:00 97.9 F 84 16 123/58 L 97 10/17/20 19:30 97 Weight Weight 93.712 kg I&O: 10/16/20 10/17/20 10/18/20 06:59 06:59 06:59 Intake Total 620 3320 120 Balance 620 3320 120 Result Diagrams: 10/18/20 05:00 10/18/20 05:00 Phys Exam - Physical Examination Constitutional: NAD HEENT: moist MMs, sclera anicteric Neck: supple, full ROM Respiratory: no wheezing, no rales, no rhonchi, clear to auscultation bilateral Cardiovascular: RRR sys murmur Gastrointestinal: soft, non-tender, positive bowel sounds distended but soft Musculoskeletal: pulses present, edema present Neurological: moves all 4 limbs Psychiatric: normal affect Skin: normal turgor, cap refill <2 seconds Dx/Plan (1) LEIF (acute kidney injury) Code(s): N17.9 - ACUTE KIDNEY FAILURE, UNSPECIFIED Status: Acute (2) Anemia Code(s): D64.9 - ANEMIA, UNSPECIFIED Status: Acute (3) Ascites Code(s): R18.8 - OTHER ASCITES Status: Acute (4) Brain metastases Code(s): C79.31 - SECONDARY MALIGNANT NEOPLASM OF BRAIN Status: Acute (5) Ovarian cancer Status: Chronic - Plan Plan: LEIF on CKD III Etiology for LEIF include hypovolemia vs dehydration and poor PO intake BUN/Cr elevated from baseline. Decreased from 3 days before admission. UA normal. - Will give gentle IVF and encourage PO hydration - Will monitor kidney function, slightly improved Cr from 2.48-> 2.13-> 2.11-> 1.88 - Renally dose medications, nephrology consulted, Dr. Wray for further recs. - Albumin tranfusion X4 doses transfused - LR @ 75 ml/hr, increased to 125 ml/hr on 10/17. 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 Rincon - Linda Rivas to see pt in hx, appreciate recommendations - Will hold chemo until renal function returns to baseline. Normocytic anemia - likely from chronic disease - Hgb has decreased since admission and IVF's. will continue to trend and transfuse if hgb <7. Suspected Hx of Afib, HTN Patient is unsure of history but is on eliquis and metoprolol - Company Secretary: Dr. Crain - NS rhythm on exam and EKG Dispo: admit to onc, obs Code: DNAR - has directive per health care facility administrator. OOHDNR signed 10/16. Palliative care consulted Addendum - Attending - Attending Attestation Date/Time: 10/18/20 9141 I personally evaluated the patient and discussed the management with Dr. Dodge I agree with the History, Examination, Assessment and Plan documented above with any addition or exceptions noted below - Patient feeling nauseous this morning. Will try and eat later. Afebrile VSS. A/P: 1) LEIF- improving; continue IVF. 2) Metastatic ovarian cancer - chemo once renal function stabilized.
[2020-10-18] MEDS: Calcium Carbonate 600 MG + Vit D TAB PO SCH (08:22)
[2020-10-18] MEDS: Gabapentin 100 MG CAP PO SCH ×2 (08:22→21:03)
[2020-10-18] MEDS: Apixaban 2.5 MG TAB PO SCH ×2 (08:22→21:03)
--- NOTE | 2020-10-18 09:00 | PRG ---
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 Urine sediment was relatively benign. However, she has received carboplatin in the past for her underlying ovarian cancer with METS. This morning, she voices no new complaints. She denies any chest pain or shortness of breath. She is tolerating current IV fluids. OBJECTIVE: VITAL SIGNS: Blood pressure is 134/63, heart rate 91, respiratory rate 21, O2 saturation 96% on room air, temperature 97.8. GENERAL: Awake, sitting comfortable, obese, not in distress. SKIN: Adequate turgor. HEENT: Slightly pale conjunctivae. Anicteric sclerae. NECK: No neck mass. No carotid bruits. No JVD. CHEST: No deformities. LUNGS: Clear breath sounds. No wheezing. No crackles. HEART: Normal sinus rhythm. No murmur. No gallops. No rubs. ABDOMEN: Globular, soft, nontender. No masses. EXTREMITIES: Positive for edema. MEDICATIONS: Medications of October 18, 2020 was reviewed. LABORATORY DATA: Laboratories of October 18, 2020; white count 7.6, hemoglobin 9.9. Sodium 136, potassium 4.3, chloride 105, carbon dioxide 23, BUN 50, creatinine 1.88, glucose 106, calcium 8.3. ASSESSMENT AND PLAN: 1. Acute kidney injury-consider hemodynamically mediated renal dysfunction, improving renal function with IV hydration. Continue current lactated Ringer's. There is no indication for any dialytic intervention. 2. Ovarian cancer/with mets-supportive care. The patient to resume chemotherapy once the renal function is much improved. We will recheck CBC and basic met in a.m. Job ID: [id number] [facility]
[2020-10-18] MEDS ORDERED: Ondansetron PF 4 MG/2 ML Vial IVP PRN (23:11)
[2020-10-18] MEDS ORDERED: Senokot S 8.6-50 MG TAB PO PRN (23:11)
[2020-10-18] MEDS ORDERED: Ondansetron ODT 4 MG TAB PO PRN (23:11)
[2020-10-18] MEDS: Acetaminophen 325 MG TAB PO PRN (23:13)
[2020-10-19] MEDS: Lactated Ringer's 1,000 ML IV SCH ×4 (03:47→21:11)
[2020-10-19 04:12] LABS: #Lymphocytes 1.5 thou/uL (1.20-3.40); #Monocytes 1.2 thou/uL (0.11-0.59); #Neutrophils 8.2 thou/uL (1.40-6.50); %Basophils 0.3 % (0.0-1.0); %Eosinophils 0.4 % (0.0-10.0); %Lymphocytes 13.8 % (21.0-51.0); %Monocytes 10.8 % (0.0-10.0); %Neutrophils 74.8 % (42.0-75.0); Hemoglobin 10.4 g/dL (12.0-16.0); Mean Corpuscular HGB CONC 32.4 g/dL (32.0-36.0); Mean Corpuscular Volume 95.7 fL (78.0-98.0); Mean Platelet Volume 6.9 fL (7.4-10.4); Platelet Count 327 thou/uL (130-400); Red Blood Cell (RBC) Count 3.36 mill/uL (4.20-5.40)
[2020-10-19 04:31] LABS: Anion Gap 15 mmol/L (10-20); BUN (Urea Nitrogen) 47 mg/dL (9.8-20.1); Calc. Creatinine Clearance 32 mL/min (70-130); Calcium 8.4 mg/dL (7.8-10.44); Carbon Dioxide 20 mmol/L (23-31); Chloride 104 mmol/L (98-107); Glucose 111 mg/dL (83-110); Potassium 4.8 mmol/L (3.5-5.1); Sodium 134 mmol/L (136-145)
--- NOTE | 2020-10-19 06:57 | PDOC.FM ---
- Subjective Subjective: c/o bloated bad and not being abl eto eat or move around due to distention of abd from ascites slight increase in Cr today, repeating UA to eval for ATN No acute overnight events - Objective MAR Reviewed: Yes Vital Signs & Weight: Vital Signs (12 hours) Temp Pulse Resp BP Pulse Ox 10/18/20 23:17 97.6 F 10/18/20 20:00 97 10/18/20 19:12 98.0 F 101 H 16 118/56 L 98 Weight Weight 93.712 kg I&O: 10/17/20 10/18/20 10/19/20 06:59 06:59 06:59 Intake Total 3320 120 1000 Balance 3320 120 1000 Result Diagrams: 10/19/20 04:00 10/19/20 03:30 Phys Exam - Physical Examination Constitutional: NAD HEENT: moist MMs, sclera anicteric Neck: supple Respiratory: no wheezing, no rales, clear to auscultation bilateral Cardiovascular: RRR sys murmur Gastrointestinal: positive bowel sounds distended and tense, TTP Musculoskeletal: pulses present, edema present Neurological: non-focal, moves all 4 limbs Psychiatric: normal affect Skin: cap refill <2 seconds Dx/Plan (1) LEIF (acute kidney injury) Code(s): N17.9 - ACUTE KIDNEY FAILURE, UNSPECIFIED Status: Acute (2) Anemia Code(s): D64.9 - ANEMIA, UNSPECIFIED Status: Acute (3) Ascites Code(s): R18.8 - OTHER ASCITES Status: Acute (4) Brain metastases Code(s): C79.31 - SECONDARY MALIGNANT NEOPLASM OF BRAIN Status: Acute (5) Ovarian cancer Status: Chronic - Plan Plan: LEIF on CKD III Etiology for LEIF include hypovolemia vs dehydration and poor PO intake BUN/Cr elevated from baseline. Decreased from 3 days before admission. UA normal. - Will give gentle IVF and encourage PO hydration - Will monitor kidney function, slightly improved Cr from 2.48-> 2.13-> 2.11-> 1.88 -> 2.00 - Renally dose medications, nephrology consulted, Dr. Wray for further recs. - Albumin tranfusion X4 doses transfused - LR @ 75 ml/hr, increased to 125 ml/hr on 10/17. woill continue for a couple of more days on 10/19 and re-eval UA for ATN today. May d/c if Cr stable over next couple of days. 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 Rincon - Linda Rivas to see pt in hx, appreciate recommendations - Will hold chemo until renal function returns to baseline. Normocytic anemia - likely from chronic disease - stable CBC, H/H 10.4/32.1. will d/c daily cbc's 10/19 Suspected Hx of Afib, HTN Patient is unsure of history but is on eliquis and metoprolol - Transcribing Operator Head: Dr. Crain - NS rhythm on exam and EKG Ascites - abd tense and TTP on 10/19 - ordered US guided paracentesis 10/19 - held AM eliquis Dispo: admit to onc, obs Code: DNAR - has directive per animal caretaker supervisor. OOHDNR signed 10/16. Palliative care consulted Addendum - Attending - Attending Attestation Date/Time: 10/19/20 7153 I personally evaluated the patient and discussed the management with Dr. Dodge I agree with the History, Examination, Assessment and Plan documented above with any addition or exceptions noted below - Patient feeling a little better after paracentesis. Still not much of an appetite. Afebrile VSS A/P: 1) LEIF- slowly improving; continue IVF as per nephrology. 2) Metastatic ovarian cancer - start chemo once renal function improved, 3) Ascites- s/p paracentesis. Continue to monitor.
[2020-10-19] MEDS: Gabapentin 100 MG CAP PO SCH ×2 (08:37→20:06)
[2020-10-19] MEDS: Calcium Carbonate 600 MG + Vit D TAB PO SCH (08:37)
[2020-10-19] MEDS: Apixaban 2.5 MG TAB PO SCH ×2 (08:47→20:06)
--- NOTE | 2020-10-19 09:07 | PRG ---
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 Initially felt that this was a hemodynamically-mediated renal dysfunction. Empiric volume repletion has been given. There was improvement with the renal function. However, the creatinine was noted to remain unimproved this morning when compared to yesterday. Creatinine yesterday was 1.8, is currently 2.0. Our plan is to continue IV hydration. I will repeat a urinalysis to rule out any superimposed acute tubular necrosis. No complaints of chest pain or shortness of breath. She does have nausea and vomiting. OBJECTIVE: VITAL SIGNS: Blood pressure 110/59, heart rate 98, respiratory rate 18, temperature 98.2, O2 saturation 99%. GENERAL: Awake, alert, sitting comfortable, not in overt distress. SKIN: Adequate turgor. HEENT: Slightly pale conjunctivae. Anicteric sclerae. No neck mass. No carotid bruits. No JVD. CHEST: No deformities. LUNGS: Clear breath sounds. No wheezing. No crackles. HEART: Tachycardic. No murmur. No gallops. No rubs. ABDOMEN: Globular, soft. EXTREMITIES: Trace edema. Medications of October 19, 2020, were reviewed. Laboratories of October 19, 2020: White count 11, hemoglobin 10.4. Sodium 134, potassium 4.8 chloride 104, carbon dioxide 20, BUN 47, creatinine 2, calcium 8.4. ASSESSMENT AND PLAN: 1. Acute kidney injury - superimposed hemodynamically-mediated renal dysfunction. Creatinine today noted at 2.0 from 1.8 yesterday. Continue IV hydration. No indication for any dialytic intervention. We will check another urinalysis to rule out any superimposed acute tubular necrosis. 2. Ovarian cancer with metastasis. Supportive care. Currently receiving chemotherapy once the renal function will further improve. 3. Nausea and vomiting. p.r.n. Zofran. 4. Recheck CBC in am. Job ID: [id number] MTDD
[2020-10-19] MEDS ORDERED: Sodium Bicarbonate 2.5 MEQ/5 ML VIAL ONE (09:18)
[2020-10-19] MEDS ORDERED: Lidocaine 1% PF 5 ML VIAL ONE (09:18)
--- NOTE | 2020-10-19 11:20 | ULT ---
Exam: Ultrasound guided paracentesis HISTORY: Ascites. Ovarian cancer. COMPARISON: 10/12/2020 FINDINGS: Successful ultrasound-guided paracentesis. Total of 5 L of red color ascites was aspirated. TECHNIQUE: Consent obtained reformatory ultrasound-guided paracentesis. Left lower quadrantwas deemed appropriate. Skin was prepped and draped in a sterile fashion. 1% lidocaine, buffered with sodium bicarbonate was used for local anesthesia. Under ultrasound guidance, a 5 Syriac 7 cm The Switcheh catheter i s advanced in the peritoneal space. A total of 5 L of red color ascites was aspirated. No immediate or postprocedural complications IMPRESSION: Successful ultrasound-guided paracentesis.
--- NOTE | 2020-10-19 14:05 | PDOC.MOPN ---
Interval History: Patient had paracentesis and feels better. Had BM today. - Vital Signs Vital Signs: Vital Signs (12 hours) Temp Pulse Resp BP Pulse Ox 10/19/20 08:00 98.2 F 98 18 110/59 L 99 Weight Weight 206 lb 9.6 oz - Physical Exam General: Alert, Oriented x3, No acute distress HEENT: Atraumatic Lungs: Clear to auscultation Cardiovascular: Regular rate Abdomen: Normal bowel sounds Neurological: Normal speech - Labs Result Diagrams: 10/19/20 04:00 10/19/20 03:30 Lab results: Laboratory Results - last 24 hr 10/19/20 04:00: WBC 11.0 H, RBC 3.36 L, Hgb 10.4 L, Hct 32.1 L, MCV 95.7, MCH 31.0, MCHC 32.4, RDW 12.0, Plt Count 327, MPV 6.9 L, Neutrophils % 74.8, Lymphocytes % 13.8 L, Monocytes % 10.8 H, Eosinophils % 0.4, Basophils % 0.3, Neutrophils # 8.2 H, Lymphocytes # 1.5, Monocytes # 1.2 H, Eosinophils # 0.0, Basophils # 0.0 10/19/20 03:30: Sodium 134 L, Potassium 4.8, Chloride 104, Carbon Dioxide 20 L, Anion Gap 15, BUN 47 H, Creatinine 2.00 H, Estimated GFR (MDRD) 24, Glucose 111 H, Calcium 8.4 Status: lab reviewed by me A/P - Problem (1) LEIF (acute kidney injury) Current Visit: Yes Code(s): N17.9 - ACUTE KIDNEY FAILURE, UNSPECIFIED Status: Acute (2) Ascites Current Visit: No Code(s): R18.8 - OTHER ASCITES Status: Acute (3) Ovarian cancer Current Visit: No Status: Chronic - Plan Plan: 1. Paracentesis today with 5L off 2. BM today 3. Plan chemo next week in clinic 4. appreciate Dr. Wray help with kidney function. 5. Updated Sr. Dudley
[2020-10-19] MEDS ORDERED: Lactated Ringer's 500 ML IV SCH ×2 (19:45→20:15)
[2020-10-19 22:23] LABS: Bacteria/HPF 3+ HPF (None Seen); Bilirubin Negative (Negative); Blood, Urine 1+ (Negative); Clarity Turbid (Clear); Glucose, Urine (Dipstick) Normal (Negative); Ketone, Urine Negative (Negative); Leukocyte 250 Leu/uL (Negative); Nitrite Negative (Negative); Protein, Urine (Dipstick) 10 mg/dL (Neg-Trace); Renal Epithelial 0-3 HPF (None Seen); Specific Gravity, Urine 1.019 (1.002-1.036); Squamous Epithelial 0-3 HPF (0-3); Urobilinogen Normal mg/dL (Less than 2)
[2020-10-20 04:58] LABS: Anion Gap 13 mmol/L (10-20); BUN (Urea Nitrogen) 46 mg/dL (9.8-20.1); Calc. Creatinine Clearance 33 mL/min (70-130); Calcium 7.9 mg/dL (7.8-10.44); Carbon Dioxide 22 mmol/L (23-31); Chloride 107 mmol/L (98-107); Glucose 101 mg/dL (83-110); Potassium 4.5 mmol/L (3.5-5.1); Sodium 137 mmol/L (136-145)
--- NOTE | 2020-10-20 05:55 | PDOC.FM ---
- Subjective Subjective: Pt is doing well today. She has no concerns. Her BP and tachycardia are improved this am. She does not have any pain and feels much better with 5 L off her abdomen. She remains on LR 125 mls/hr and received a 1 L bolus over night. - Objective Vital Signs & Weight: Vital Signs (12 hours) Temp Pulse Resp BP BP BP Pulse Ox 10/20/20 04:07 97 105/52 L 10/20/20 00:05 124 H 103/57 L 10/19/20 21:04 123 H 98/52 L 10/19/20 20:10 129 H 94/51 L 10/19/20 19:19 98.2 F 129 H 14 88/56 L 96 Weight Weight 93.712 kg I&O: 10/18/20 10/19/20 10/20/20 06:59 06:59 06:59 Intake Total 1620 2740 1900 Balance 1620 2740 1900 Result Diagrams: 10/19/20 04:00 10/20/20 04:27 Phys Exam - Physical Examination Constitutional: NAD HEENT: PERRLA, moist MMs Respiratory: no wheezing, clear to auscultation bilateral Cardiovascular: RRR, no significant murmur Gastrointestinal: soft, non-tender, positive bowel sounds distended abdomen Musculoskeletal: pulses present 1+ pitting edema Neurological: non-focal, normal sensation Psychiatric: normal affect, A&O x 3 Skin: no rash, normal turgor Dx/Plan - Plan Plan: LEIF on CKD III Etiology for LEIF include hypovolemia vs dehydration and poor PO intake vs AIN BUN/Cr elevated from baseline. Decreased from 3 days before admission. - Will give gentle IVF and encourage PO hydration - Will monitor kidney function, slightly improved Cr from 2.48-> 2.13-> 2.11-> 1.88 -> 2.00 -> 1.9 - Renally dose medications, nephrology consulted, Dr. Wray for further recs. - Albumin tranfusion X4 doses transfused - LR @ 75 ml/hr, increased to 125 ml/hr on 10/17. - Renal epithelial cells noted on U/A pointing towards ATN Ovarian cancer with mets to the abd and cerebellar mass - Will consult oncology, Dr. Rincon - Linda Rivas to see pt in hx, appreciate recommendations - Will hold chemo until renal function returns to baseline. Currently has chemo scheduled next week in clinic Normocytic anemia - likely from chronic disease - stable CBC, H/H 10.4/32.1. will d/c daily cbc's 10/19 Suspected Hx of Afib, HTN Patient is unsure of history but is on eliquis and metoprolol - Training And Development Specialist: Dr. Crain - NS rhythm on exam and EKG Ascites - US guided paracentesis 10/19 - 5 L removed - held AM eliquis - will discuss continuing today Dispo: admit to onc, obs Code: DNAR - has directive per health and social care teacher. OOHDNR signed 10/16. Palliative care consulted Addendum - Attending - Attending Attestation Date/Time: 10/20/20 0983 I personally evaluated the patient and discussed the management with Dr. Ibanez. I agree with the History, Examination, Assessment and Plan documented above with any addition or exceptions noted below. Renal sono on 10/01 with no hydronephrosis reportedly. Otherwise this may be a new baseline.
--- NOTE | 2020-10-20 07:52 | PRG ---
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 This was felt to be a hemodynamically-mediated renal dysfunction. Renal function has improved; however, it has not normalized. The most recent creatinine is 1.9. We are currently volume repleting this patient. Currently, she is on LR solution. I reviewed the second urine sediment. She may have UTI, but she does not have any symptoms, for that reason we will not attempt to treat this. In addition, there is no evidence of acute tubular necrosis. No complaints of chest pain or shortness of breath. OBJECTIVE: VITAL SIGNS: Blood pressure 105/52, heart rate 97. GENERAL: Awake, alert, comfortable, not in overt distress. SKIN: Adequate turgor. HEENT: She has pinkish conjunctivae. Anicteric sclerae. NECK: No neck mass. No carotid bruits. No JVD. CHEST: No deformities. LUNGS: Clear breath sounds. HEART: Normal sinus rhythm. No murmurs, gallops, or rubs. ABDOMEN: Globular, soft, and nontender. No masses. EXTREMITIES: Trace edema. No deformities. MEDICATIONS: From October 20, 2020, were reviewed. LABORATORY DATA: From October 20, 2020: Sodium 137, potassium 4.5, chloride 107, carbon dioxide 22, BUN 46, creatinine 1.91, GFR 25 mL/minute, calcium 7.9. White count 11, hemoglobin 10.4. Urinalysis positive for hyaline casts, rbc 4-6, wbc 4-6, protein is 10. ASSESSMENT AND PLAN: 1. Acute kidney injury-prerenal azotemia. Stabilizing renal function. No indication for any dialytic intervention. Continue IV hydration. 2. Borderline CBC. Continue to observe. 3. Ovarian carcinoma with metastasis. The patient is followed up by Oncology as an outpatient. Job ID: [id number]
[2020-10-20] MEDS: Calcium Carbonate 600 MG + Vit D TAB PO SCH (08:19)
[2020-10-20] MEDS: Gabapentin 100 MG CAP PO SCH ×2 (08:20→20:18)
[2020-10-20] MEDS: Apixaban 2.5 MG TAB PO SCH ×2 (08:20→20:18)
[2020-10-20] MEDS: Lactated Ringer's 1,000 ML IV SCH ×3 (08:20→21:30)
[2020-10-20] MEDS ORDERED: Ergocalciferol 1.25 MG(50,000 UNITS) CAP PO SCH (09:00)
[2020-10-21] MEDS: Lactated Ringer's 1,000 ML IV SCH ×3 (05:09→21:00)
--- NOTE | 2020-10-21 06:15 | PDOC.FM ---
- Subjective Subjective: Pt is doing well today. She slept overnight. No concerns. Denies fever, chills, dysuria, increased frequency. Her breathing is not compromised by abdominal distention. - Objective Vital Signs & Weight: Vital Signs (12 hours) Temp Pulse Resp BP Pulse Ox 10/20/20 20:00 98.3 F 88 18 99/49 L 95 Weight Weight 93.712 kg I&O: 10/19/20 10/20/20 10/21/20 06:59 06:59 06:59 Intake Total 2740 1900 1221 Output Total 300 500 Balance 2740 1600 721 Result Diagrams: 10/21/20 06:40 10/21/20 06:40 Phys Exam - Physical Examination Constitutional: NAD HEENT: moist MMs, sclera anicteric Neck: no JVD, full ROM Respiratory: no wheezing, clear to auscultation bilateral Cardiovascular: RRR, no significant murmur Gastrointestinal: soft abdomen distended Musculoskeletal: pulses present 1-2+ pitting edema Neurological: normal sensation, moves all 4 limbs Psychiatric: normal affect, A&O x 3 Dx/Plan - Plan Plan: LEIF on CKD III - improving Etiology for LEIF include hypovolemia vs dehydration and poor PO intake vs AIN BUN/Cr elevated from baseline. Decreased from 3 days before admission. - Will give gentle IVF and encourage PO hydration - Will monitor kidney function, slightly improved Cr from 2.48-> 2.13-> 2.11-> 1.88 -> 2.00 -> 1.9 - Cr baseline ~1.0 - Renally dose medications, nephrology consulted, Dr. Wray for further recs. - Albumin tranfusion X4 doses transfused - LR @ 75 ml/hr, increased to 125 ml/hr on 10/17. 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 Rincon - Linda Rivas to see pt in hx, appreciate recommendations - Will hold chemo until renal function returns to baseline. Currently has c hemo scheduled next week in clinic Normocytic anemia - likely from chronic disease Suspected Hx of Afib, HTN Patient is unsure of history but is on eliquis and metoprolol - Leaf Sucker Operator: Dr. Crain - NS rhythm on exam and EKG Ascites - US guided paracentesis 10/19 - 5 L removed - held AM eliquis - will discuss continuing today Dispo: admit to onc, inpt Code: DNAR - has directive per elderly caregiver. OOHDNR signed 10/16. Palliative care consulted Addendum - Attending - Attending Attestation Date/Time: 10/21/20 8679 I personally evaluated the patient and discussed the management with Dr. Ibanez. I agree with the History, Examination, Assessment and Plan documented above with any addition or exceptions noted below.
[2020-10-21 06:57] LABS: #Lymphocytes 1.2 thou/uL (1.20-3.40); #Monocytes 0.7 thou/uL (0.11-0.59); #Neutrophils 4.2 thou/uL (1.40-6.50); %Basophils 0.1 % (0.0-1.0); %Eosinophils 0.8 % (0.0-10.0); %Lymphocytes 18.9 % (21.0-51.0); %Monocytes 11.9 % (0.0-10.0); %Neutrophils 68.3 % (42.0-75.0); Hemoglobin 8.3 g/dL (12.0-16.0); Mean Corpuscular HGB CONC 32.9 g/dL (32.0-36.0); Mean Corpuscular Hemoglobin 31.6 pg (27.0-31.0); Mean Corpuscular Volume 96.1 fL (78.0-98.0); Mean Platelet Volume 6.7 fL (7.4-10.4); Platelet Count 227 thou/uL (130-400); RBC Distribution Width 12.1 % (11.5-14.5); Red Blood Cell (RBC) Count 2.64 mill/uL (4.20-5.40); White Blood Cell (WBC) Count 6.1 thou/uL (4.8-10.8)
[2020-10-21 07:17] LABS: Anion Gap 9 mmol/L (10-20); BUN (Urea Nitrogen) 42 mg/dL (9.8-20.1); Calc. Creatinine Clearance 36 mL/min (70-130); Calcium 7.6 mg/dL (7.8-10.44); Carbon Dioxide 24 mmol/L (23-31); Chloride 107 mmol/L (98-107); Glucose 102 mg/dL (83-110); Potassium 4.5 mmol/L (3.5-5.1); Sodium 135 mmol/L (136-145)
[2020-10-21] MEDS: Apixaban 2.5 MG TAB PO SCH ×2 (08:27→20:22)
[2020-10-21] MEDS: Calcium Carbonate 600 MG + Vit D TAB PO SCH (08:27)
[2020-10-21] MEDS: Gabapentin 100 MG CAP PO SCH ×2 (08:27→20:21)
--- NOTE | 2020-10-21 10:36 | PRG ---
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 There is no improvement of the renal function. Creatinine is slightly improved today at 1.73. Yesterday, this was 1.91. Please note that her creatinine peaked at a value of 2.48. My concern is that the patient still has decreased p.o. intake. She is only taking 25% of her meals. This may be the reason why she is not bouncing back to a normal renal function. I will continue current IV fluids for the moment. Currently, on lactated Ringer's 125 mL/hour. No new complaints today except decreased appetite. No chest pain or shortness of breath. OBJECTIVE: VITAL SIGNS: Blood pressure 99/49, heart rate 88, respiratory rate 18, temperature 98.3, O2 saturation 95%. GENERAL: The patient is awake, sitting comfortable, obese, not in distress. SKIN: Adequate turgor. HEENT: Pinkish conjunctivae. Anicteric sclerae. NECK: No neck mass. No carotid bruits. No JVD. CHEST: No deformities. LUNGS: Clear breath sounds. No wheezing. No crackles. HEART: Normal sinus rhythm. No murmur. No gallops. No rubs. ABDOMEN: Globular, soft, nontender. No masses. EXTREMITIES: Positive leg edema. MEDICATIONS: Medications of October 21, 2020, were reviewed. LABORATORY DATA: October 21, 2020, sodium 135, potassium 4.5, chloride 107, carbon dioxide 24, BUN 42, creatinine 1.73, calcium 7.6. White count 6.1, hemoglobin 8.3. ASSESSMENT AND PLAN: 1. Anemia. We will continue to observe p.r.n. blood transfusion for hemoglobin less than 7. 2. Acute kidney injury - I suspect a hemodynamically-mediated renal dysfunction. Review of a 2nd urinalysis did not suggest acute tubular necrosis. Continue IV fluid. I will add albumin 25 g IV q.6. My concern is the patient has decreased p.o. intake. May not be able to orally hydrate herself well. Suggest we still keep her here for a few more days in the hospital. 3. Urinary tract infection. My bias is to proceed with the empiric antibiotics. The patient I feel is immunosuppressed from chemotherapy. 4. Overall prognosis remains guarded. 5. Ovarian cancer with metastasis to the brain - continue supportive care. She has received chemotherapy in the past. We will recheck CBC and BMP in am. Job ID: [id number] MTDD
[2020-10-21] MEDS: Albumin 25% 25 GM/100 ML BOT IVPB SCH ×2 (12:55→17:38)
[2020-10-21] MEDS: Ciprofloxacin 500 MG TAB PO SCH (20:22)
[2020-10-22] MEDS: Albumin 25% 25 GM/100 ML BOT IVPB SCH ×2 (00:44→05:32)
[2020-10-22] MEDS: Lactated Ringer's 1,000 ML IV SCH (05:35)
[2020-10-22 05:42] LABS: Eosinophils 1 % (0-10); Hemoglobin 8.1 g/dL (12.0-16.0); Lymphocytes 23 % (21-51); MDiff Complete? YES; Mean Corpuscular HGB CONC 33.3 g/dL (32.0-36.0); Mean Corpuscular Hemoglobin 31.9 pg (27.0-31.0); Mean Corpuscular Volume 95.7 fL (78.0-98.0); Mean Platelet Volume 7.1 fL (7.4-10.4); Monocytes 9 % (0-10); Neutrophil 67 % (42-75); Platelet Count 216 thou/uL (130-400); Platelet Morphology Comment Appears Adequate; RBC Distribution Width 12.2 % (11.5-14.5); Red Blood Cell (RBC) Count 2.53 mill/uL (4.20-5.40); White Blood Cell (WBC) Count 6.9 thou/uL (4.8-10.8)
[2020-10-22 06:05] LABS: Anion Gap 11 mmol/L (10-20); BUN (Urea Nitrogen) 35 mg/dL (9.8-20.1); Calc. Creatinine Clearance 37 mL/min (70-130); Calcium 8.4 mg/dL (7.8-10.44); Carbon Dioxide 23 mmol/L (23-31); Chloride 106 mmol/L (98-107); Glucose 103 mg/dL (83-110); Potassium 4.4 mmol/L (3.5-5.1); Sodium 136 mmol/L (136-145)
[2020-10-22] MEDS: Ciprofloxacin 500 MG TAB PO SCH (06:16)
--- NOTE | 2020-10-22 06:39 | PDOC.FM ---
- Subjective Subjective: Pt is doing well this morning. She ate dinner last night and is eating again this morning. She states she has early satiety. - Objective MAR Reviewed: Yes Vital Signs & Weight: Vital Signs (12 hours) Temp Pulse Resp BP Pulse Ox 10/21/20 19:20 97.9 F 98 18 128/78 99 Weight Weight 93.712 kg I&O: 10/20/20 10/21/20 10/22/20 06:59 06:59 06:59 Intake Total 1900 1461 1871.5 Output Total 907 104 2315 Balance 1600 611 871.5 Result Diagrams: 10/22/20 04:45 10/22/20 04:45 Phys Exam - Physical Examination Constitutional: NAD HEENT: moist MMs Neck: no nodes, supple Respiratory: clear to auscultation bilateral Cardiovascular: RRR, no significant murmur Gastrointestinal: soft, non-tender, positive bowel sounds 1+ pitting edema Neurological: moves all 4 limbs Psychiatric: normal affect, A&O x 3 Skin: no rash, normal turgor Dx/Plan (1) CKD (chronic kidney disease), stage III Code(s): N18.30 - CHRONIC KIDNEY DISEASE, STAGE 3 UNSPECIFIED Status: Acute (2) LEIF (acute kidney injury) Code(s): N17.9 - ACUTE KIDNEY FAILURE, UNSPECIFIED Status: Acute (3) Anemia Code(s): D64.9 - ANEMIA, UNSPECIFIED Status: Acute (4) Ovarian cancer Status: Chronic (5) Ascites Code(s): R18.8 - OTHER ASCITES Status: Acute - Plan Plan: 85yo F here today after being sent to the ER by oncologist Dr. Rincon due to abnormal labs that were obtained on 10/12 and showed an LEIF with Cr of 3.25. 1. LEIF on CKD III - Improving Etiology for LEIF include hypovolemia vs dehydration and poor PO intake vs AIN BUN/Cr elevated from baseline. Decreased from 3 days before admission. - Will give gentle IVF and encourage PO hydration - Will monitor kidney function, slightly improved Cr from 2.48-> 2.13-> 2.11-> 1.88 -> 2.00 -> 1.9 - Cr baseline ~1.0 - Renally dose medications, nephrology consulted, Dr. Wray for further recs. - Albumin tranfusion X4 doses transfused - LR @ 75 ml/hr, increased to 125 ml/hr on 10/17. -Nephro, Dr. Wray, lucasay to go from his standpoint. Needs follow up in clinic. 2. 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 Rincon - Linda Rivas to see pt in hx, appreciate recommendations - Will hold chemo until renal function returns to baseline. Currently has chemo scheduled next week in clinic 3. Normocytic anemia - likely from chronic disease 4. Suspected Hx of Afib, HTN Patient is unsure of history but is on eliquis and metoprolol - Facilities Maintenance Engineer: Dr. Crain - NS rhythm on exam and EKG 5. Ascites - US guided paracentesis 10/19 - 5 L removed - held AM eliquis - will discuss continuing today Code: DNAR - has directive per acute care assistant. OOHDNR signed 10/16. Palliative care consulted Dispo: Onc obs. Will d/c today pending onc recs. Addendum - Attending - Attending Attestation Date/Time: 10/22/20 1032 I personally evaluated the patient and discussed the management with Dr. Landin. I agree with the History, Examination, Assessment and Plan documented above with any addition or exceptions noted below.
[2020-10-22 08:10] VITALS: BP 109/53; TEMP 96.5
[2020-10-22] MEDS: Apixaban 2.5 MG TAB PO SCH (08:26)
[2020-10-22] MEDS: Calcium Carbonate 600 MG + Vit D TAB PO SCH (08:26)
[2020-10-22] MEDS: Gabapentin 100 MG CAP PO SCH (08:27)
--- NOTE | 2020-10-22 10:02 | PRG ---
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 Empiric colloid/crystalloid infusion was given with improvement of the renal function. Unfortunately, the creatinine leveled off at around 1.7 and has not gone back to a baseline normal creatinine. It is possible that even though the urinalysis was benign, she may have some intrinsic acute tubular necrosis. The patient's creatinine today is 1.71. She has also decreased p.o. intake. However, the sister tells me her appetite is slightly improved. She will attempt to increase her p.o. intake if she is discharged to home. No complaints of chest pain or shortness of breath. OBJECTIVE: VITAL SIGNS: Blood pressure 109/53, heart rate 89, respiratory rate 16, temperature 96.5, O2 saturation 98%. GENERAL: Awake, sitting comfortable, not in distress. SKIN: Adequate turgor. HEENT: Slightly pale conjunctivae. Anicteric sclerae. No neck mass. No carotid bruits. No JVD. CHEST: No deformities. LUNGS: Clear breath sounds. No wheezing. No crackles. HEART: Normal sinus rhythm. No murmur. No gallops. No rubs. ABDOMEN: Globular, soft, nontender. No masses. EXTREMITIES: Positive for edema. MEDICATIONS: Medications of October 22, 2020, were reviewed. LABORATORY DATA: On October 22, 2020, sodium 136, potassium 4.4, chloride 106, carbon dioxide 23, BUN 35, creatinine 1.71, GFR 29 mL/minute, glucose 103, calcium 8.4. White count 6.9, hemoglobin 8.1. ASSESSMENT AND PLAN: 1. Acute kidney injury-initially felt to be purely a hemodynamically-mediated renal dysfunction. Empiric volume repletion with colloid and crystalloids was done with improvement of the renal function. Unfortunately, renal function never normalized to normal. The possibility of an underlying intrinsic acute kidney injury is being entertained. An acute tubular necrosis is a likely possibility. Continue supportive care. From a renal point of view, the patient can be discharged, and we will [facility]. 2. Anemia. Continue to observe. She may eventually need Epogen with her state game protector. 3. Ovarian cancer with metastasis. Continue supportive care. The patient continues to be followed up by her oncologist and receive chemotherapy. Job ID: [id number]
[2020-10-22] MEDS ORDERED: Dronabinol 2.5 MG CAP PO SCH (16:30)
--- NOTE | 2020-10-23 11:40 | EKG ---
Test Reason : Blood Pressure : / mmHG Vent. Rate : 126 BPM Atrial Rate : 126 BPM P-R Int : 176 ms QRS Dur : 072 ms QT Int : 314 ms P-R-T Axes : 000 044 244 degrees QTc Int : 454 ms Unusual P axis, possible ectopic atrial tachycardia Low voltage QRS Nonspecific T wave abnormality Abnormal ECG Confirmed by REGINA HUYNH ([id number]) on 10/23/2020 11:39:59 AM Referred By: MARKELL Confirmed By:REGINA HUYNH
--- NOTE | 2020-10-24 10:11 | DIS ---
DATE OF ADMISSION: 10/15/2020 DATE OF DISCHARGE: 10/22/2020 ATTENDING PHYSICIAN: Jameson Cervantes MD RESIDENT: Devon Landin MD. CONSULTATION: * Nephrology, Dr. Wray on 10/16/2020. The patient has LEIF, thought to be hemodynamically mediated, repletion with colloid and crystalloids was done with improvement of renal function. Renal function has not normalized, possibility of underlying intrinsic acute kidney injury. Acute tubular necrosis is possible. Continue supportive care. Discharge and follow up in outpatient clinic with him later this week. * Oncology, Rob on 10/16/2020. Plan for chemo this week after improvement in kidney function. The patient had paracentesis during her stay and is okay to be discharged at this time. * Palliative Care was consulted about goals of care. This was discussed and directives were placed in medical records as well as DNR with out of hospital DNR signed. PROCEDURES: * Chest x-ray on 10/15/2020, cardiomegaly, no acute findings, stable exam. * Paracentesis on 10/19, 5 L of red ascites were pulled off from the patient's peritoneal space. PRIMARY DIAGNOSIS: 1.Acute kidney injury on chronic kidney disease 3. SECONDARY DIAGNOSES: 1. Ovarian cancer with mets to the abdomen and cerebellar mass. 2. Normocytic anemia. 3. Hypertension. 4. History of atrial fibrillation. 5. Ascites. DISCHARGE MEDICATIONS: Continue home medications of: 1. Calcium carbonate one tab daily. 2. Vitamin D2 75078 units p.o. q.7 days. 3. Gabapentin 100 mg p.o. b.i.d. 4. Lasix 20 mg p.o. q.2 days. 5. Metoprolol 12.5 mg p.o. q.12 hours. Started: The patient due to poor appetite was started on dronabinol 2.5 mg p.o. b.i.d. MEDICATION CHANGED: 1. Apixaban was decreased to 2.5 mg p.o. b.i.d. from 5 mg p.o. b.i.d. 2. Short courses of ciprofloxacin were given for UTI. Ciprofloxacin 500 mg p.o. b.i.d. q.2 days. 3. Lasix was held as patient does not need more nephrotoxic medication at this time. HISTORY OF PRESENT ILLNESS: The patient is an 85-year-old female who presents after being sent by oncologist, Dr. Rincon due to abnormal labs that were obtained on 10/12 that showed an LEIF with a creatinine of 3.25. The patient has a history of ovarian cancer, diagnosed years ago with tremendous surgery and chemo and now has recurred. She is schedule to start chemo tomorrow with Dr. Rincon. She has no history of kidney disease that she is aware of. Her baseline creatinine is 1.3. Based on chart review, she is returning to produce urine and denies any urinary symptoms. 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 She has had 2 paracentesis the two Fridays prior to admission. Since the first one, she has not been eating well due to everything tasting like soup. She denies shortness of breath, cough, loss of smell, sick contacts, diarrhea. She states she had one episode of vomiting after paracentesis, but her face boss who is accompanying her states she has had more than one episode. 1. LEIF on CKD stage 3, improving. Etiology is hypovolemia versus poor p.o. intake versus acute tubular necrosis. * Consulted Dr. Wray as above. * She was given gentle IV hydration while here. * Her creatinine improved to 1.7 prior to discharge. Creatinine baseline is 1.3 per record review. S * he was given 4 doses of albumin prior to discharge. 2. Ovarian cancer with mets to abdomen and cerebellar mass. Palliative and Oncology consulted. * They will follow up with her outpatient and restart chemo once her renal function returns to baseline. 3. Normocytic anemia, likely from chronic disease. 4. Suspected history of atrial fibrillation, hypertension. The patient is unsure of history of being on Eliquis and metoprolol. * Normal sinus rhythm on exam and EKG. * We will continue home medications at this time with changes as above. 5. Ascites. Ultrasound-guided paracentesis on 10/19 had 5 L removed. * Home Eliquis restarted prior to discharge. DISCHARGE INSTRUCTIONS: 1. Location: Home. 2. Activity: As tolerated. 3. Diet: Regular. 4. Followup with PCP in [address] Wray in 7 days of discharge. Job ID: [id number] [facility]
== END 2020-10-22 14:50 | disposition home or self-care (01) | DRG 683 ==
LOC: ERS 16:05 → ERHOLD 20:40 → ONC 23:29
PROVIDERS: ADMIT Student in an Organized Health Care Education/Training Program; ATTEND Student in an Organized Health Care Education/Training Program
PROC: 0W9G3ZZ Drainage of Peritoneal Cavity, Percutaneous Approach (ICD-10-PCS; principal; 2020-10-19)
DX: N17.0 Acute kidney failure with tubular necrosis (principal); C79.31 Secondary malignant neoplasm of brain; C79.89 Secondary malignant neoplasm of other specified sites; R18.0 Malignant ascites; N39.0 Urinary tract infection, site not specified; C56.1 Malignant neoplasm of right ovary; C79.51 Secondary malignant neoplasm of bone; Z66 Do not resuscitate; Z79.01 Long term (current) use of anticoagulants; Z79.899 Other long term (current) drug therapy; Z88.5 Allergy status to narcotic agent; Z98.890 Other specified postprocedural states; I13.10 Hypertensive heart and chronic kidney disease without heart failure, with stage 1 through stage 4 chronic kidney disease, or unspecified chronic kidney disease; N18.30 Chronic kidney disease, stage 3 unspecified; E86.0 Dehydration; D63.1 Anemia in chronic kidney disease; K21.9 Gastro-esophageal reflux disease without esophagitis
CPT/HCPCS: 36415; 49083; 71045; 80048; 80053; 81001; 81003; 82248; 83036; 83615; 83880; 84100; 84550; 85025; 86304; 87086; 87635; 90471; 90662; 90732; 93005; 93010; G0008; G0009; J1642; P9047; U0003; U0005

== ENCOUNTER 2020-10-24 14:33 | Inpatient (IN) | payer MEDICARE, BC ==
[2020-10-24 15:21] LABS: #Basophils 0.1 thou/uL (0.0-0.2); #Lymphocytes 1.5 thou/uL (1.20-3.40); #Monocytes 1.4 thou/uL (0.11-0.59); #Neutrophils 12.2 thou/uL (1.40-6.50); %Basophils 0.4 % (0.0-1.0); %Eosinophils 0.2 % (0.0-10.0); %Lymphocytes 9.9 % (21.0-51.0); %Monocytes 9.3 % (0.0-10.0); %Neutrophils 80.2 % (42.0-75.0); Mean Corpuscular HGB CONC 33.3 g/dL (32.0-36.0); Mean Corpuscular Hemoglobin 32.5 pg (27.0-31.0); Mean Corpuscular Volume 97.7 fL (78.0-98.0); Mean Platelet Volume 6.9 fL (7.4-10.4); Platelet Count 291 thou/uL (130-400); RBC Distribution Width 12.9 % (11.5-14.5); Red Blood Cell (RBC) Count 3.07 mill/uL (4.20-5.40); White Blood Cell (WBC) Count 15.3 thou/uL (4.8-10.8)
[2020-10-24 15:37] LABS: ALT (SGPT) 9 U/L (8-55); AST (SGOT) 21 U/L (5-34); Albumin 3.3 g/dL (3.4-4.8); Alkaline Phosphatase 83 U/L (40-110); Anion Gap 15 mmol/L (10-20); BUN (Urea Nitrogen) 36 mg/dL (9.8-20.1); Bilirubin, Total 0.6 mg/dL (0.2-1.2); Calc. Creatinine Clearance 0 mL/min (70-130); Calcium 8.7 mg/dL (7.8-10.44); Carbon Dioxide 20 mmol/L (23-31); Chloride 106 mmol/L (98-107); Globulin 2.2 g/dL (2.4-3.5); Glucose 120 mg/dL (83-110); Protein, Total 5.5 g/dL (5.8-8.1); Sodium 136 mmol/L (136-145)
[2020-10-24 16:16] LABS: Bacteria/HPF None Seen HPF (None Seen); Bilirubin Negative (Negative); Blood, Urine Negative (Negative); Clarity Clear (Clear); Glucose, Urine (Dipstick) Normal (Negative); Ketone, Urine Negative (Negative); Leukocyte Negative Leu/uL (Negative); Nitrite Negative (Negative); Protein, Urine (Dipstick) 50 mg/dL (Neg-Trace); RBC/HPF 0-3 HPF (0-3); Specific Gravity, Urine 1.017 (1.002-1.036); Urobilinogen Normal mg/dL (Less than 2); WBC/HPF 0-3 HPF (0-3); pH, Urine 5.5 (5.0-9.0)
[2020-10-24] MEDS ORDERED: Albumin 25% 25 GM/100 ML BOT IVPB SCH (18:30)
[2020-10-24] MEDS ORDERED: Acetaminophen 325 MG TAB ONE (18:51)
[2020-10-24] MEDS ORDERED: Acetaminophen 325 MG TAB PO PRN (20:30)
[2020-10-24] MEDS: traMADol HCl 50 MG TAB PO PRN (23:58)
[2020-10-25 00:18] VITALS: BMI 41.7
[2020-10-25] MEDS: Lactated Ringer's 1,000 ML IV SCH ×3 (02:21→20:19)
[2020-10-25 03:25] LABS: SARS-CoV-2 PCR by NAA Not Detected (NotDetected)
[2020-10-25] MEDS ORDERED: Ondansetron PF 4 MG/2 ML Vial IVP PRN (07:59)
[2020-10-25] MEDS: Albumin 25% 25 GM/100 ML BOT IVPB SCH ×3 (09:57→22:42)
[2020-10-25] MEDS: Gabapentin 100 MG CAP PO SCH ×2 (09:57→20:18)
[2020-10-25] MEDS: Dronabinol 2.5 MG CAP PO SCH ×2 (09:58→16:42)
[2020-10-25] MEDS: Calcium Carbonate 600 MG + Vit D TAB PO SCH (09:58)
[2020-10-25] MEDS ORDERED: traMADol HCl 50 MG TAB PO PRN (14:08)
[2020-10-25] MEDS: Ondansetron PF 4 MG/2 ML Vial IVP SCH ×3 (16:42→22:42)
[2020-10-25] MEDS: traMADol HCl 50 MG TAB PO PRN (16:42)
[2020-10-25 18:07] LABS: Anion Gap 15 mmol/L (10-20); BUN (Urea Nitrogen) 40 mg/dL (9.8-20.1); Calc. Creatinine Clearance 15 mL/min (70-130); Calcium 8.6 mg/dL (7.8-10.44); Carbon Dioxide 19 mmol/L (23-31); Chloride 106 mmol/L (98-107); Glucose 98 mg/dL (83-110); Potassium 5.3 mmol/L (3.5-5.1); Sodium 135 mmol/L (136-145)
[2020-10-25] MEDS ORDERED: Lactated Ringer's 250 ML IV SCH (19:15)
[2020-10-26] MEDS ORDERED: Lactated Ringer's 250 ML IV SCH (02:30)
[2020-10-26] MEDS: Albumin 25% 25 GM/100 ML BOT IVPB SCH (04:37)
[2020-10-26] MEDS: Ondansetron PF 4 MG/2 ML Vial IVP SCH ×3 (04:45→18:18)
[2020-10-26 06:37] LABS: Anion Gap 14 mmol/L (10-20); BUN (Urea Nitrogen) 46 mg/dL (9.8-20.1); Calc. Creatinine Clearance 14 mL/min (70-130); Calcium 8.8 mg/dL (7.8-10.44); Carbon Dioxide 21 mmol/L (23-31); Chloride 106 mmol/L (98-107); Glucose 100 mg/dL (83-110); Potassium 5.2 mmol/L (3.5-5.1); Sodium 136 mmol/L (136-145)
[2020-10-26 07:40] LABS: #Lymphocytes 0.9 thou/uL (1.20-3.40); #Monocytes 0.9 thou/uL (0.11-0.59); #Neutrophils 7.9 thou/uL (1.40-6.50); %Basophils 0.4 % (0.0-1.0); %Eosinophils 0.2 % (0.0-10.0); %Lymphocytes 9.2 % (21.0-51.0); %Monocytes 9.5 % (0.0-10.0); %Neutrophils 80.8 % (42.0-75.0); Hemoglobin 6.8 g/dL (12.0-16.0); Mean Corpuscular HGB CONC 32.3 g/dL (32.0-36.0); Mean Corpuscular Hemoglobin 31.5 pg (27.0-31.0); Mean Corpuscular Volume 97.6 fL (78.0-98.0); Mean Platelet Volume 6.6 fL (7.4-10.4); Platelet Count 230 thou/uL (130-400); RBC Distribution Width 12.6 % (11.5-14.5); Red Blood Cell (RBC) Count 2.15 mill/uL (4.20-5.40); White Blood Cell (WBC) Count 9.8 thou/uL (4.8-10.8)
[2020-10-26] MEDS: Lactated Ringer's 1,000 ML IV SCH (09:05)
[2020-10-26] MEDS ORDERED: Lactated Ringer's 1,000 ML IV SCH (09:26)
[2020-10-26] MEDS: Gabapentin 100 MG CAP PO SCH ×2 (10:38→20:28)
[2020-10-26] MEDS: Dronabinol 2.5 MG CAP PO SCH ×2 (10:38→18:18)
[2020-10-26] MEDS: Calcium Carbonate 600 MG + Vit D TAB PO SCH (10:38)
[2020-10-26 12:31] LABS: INR-International Normal Ratio 1.4; PTT 34.3 sec (22.9-36.1); Prothrombin Time 17.7 sec (12.0-14.7)
[2020-10-26 21:18] LABS: Hemoglobin 8.7 g/dL (12.0-16.0); Mean Corpuscular HGB CONC 33.1 g/dL (32.0-36.0); Mean Corpuscular Hemoglobin 31.7 pg (27.0-31.0); Mean Corpuscular Volume 95.7 fL (78.0-98.0); Mean Platelet Volume 6.2 fL (7.4-10.4); Platelet Count 202 thou/uL (130-400); RBC Distribution Width 12.7 % (11.5-14.5); Red Blood Cell (RBC) Count 2.74 mill/uL (4.20-5.40); White Blood Cell (WBC) Count 9.5 thou/uL (4.8-10.8)
[2020-10-27] MEDS: Ondansetron PF 4 MG/2 ML Vial IVP SCH ×3 (00:33→12:56)
[2020-10-27 05:50] LABS: #Lymphocytes 1.1 thou/uL (1.20-3.40); #Monocytes 0.8 thou/uL (0.11-0.59); #Neutrophils 7.4 thou/uL (1.40-6.50); %Basophils 0.2 % (0.0-1.0); %Eosinophils 0.5 % (0.0-10.0); %Lymphocytes 11.3 % (21.0-51.0); %Monocytes 8.5 % (0.0-10.0); %Neutrophils 79.4 % (42.0-75.0); Hemoglobin 9.1 g/dL (12.0-16.0); Mean Corpuscular HGB CONC 33.4 g/dL (32.0-36.0); Mean Corpuscular Hemoglobin 31.8 pg (27.0-31.0); Mean Corpuscular Volume 95.2 fL (78.0-98.0); Mean Platelet Volume 6.6 fL (7.4-10.4); Platelet Count 211 thou/uL (130-400); RBC Distribution Width 12.9 % (11.5-14.5); Red Blood Cell (RBC) Count 2.87 mill/uL (4.20-5.40); White Blood Cell (WBC) Count 9.3 thou/uL (4.8-10.8)
[2020-10-27 06:11] LABS: Anion Gap 13 mmol/L (10-20); BUN (Urea Nitrogen) 52 mg/dL (9.8-20.1); Calc. Creatinine Clearance 11 mL/min (70-130); Calcium 7.9 mg/dL (7.8-10.44); Carbon Dioxide 21 mmol/L (23-31); Chloride 107 mmol/L (98-107); Glucose 103 mg/dL (83-110); Potassium 5.4 mmol/L (3.5-5.1); Sodium 136 mmol/L (136-145)
[2020-10-27] MEDS: Dronabinol 2.5 MG CAP PO SCH (08:03)
[2020-10-27 08:42] VITALS: BP 107/54; TEMP 98.2
[2020-10-27] MEDS: Gabapentin 100 MG CAP PO SCH (10:46)
[2020-10-27] MEDS: Calcium Carbonate 600 MG + Vit D TAB PO SCH (10:46)
[2020-10-28] MEDS ORDERED: Ergocalciferol 1.25 MG(50,000 UNITS) CAP PO SCH (09:00)
== END 2020-10-27 16:25 | disposition hospice, home (50) | DRG 754 ==
LOC: ERS 14:33 → INTOOBSV 17:18 → ONC 17:18 → OBSVTOIN 10-25 15:32
PROVIDERS: ADMIT Student in an Organized Health Care Education/Training Program; ATTEND Student in an Organized Health Care Education/Training Program
PROC: 30233N1 Transfusion of Nonautologous Red Blood Cells into Peripheral Vein, Percutaneous Approach (ICD-10-PCS; principal; 2020-10-26)
PROC: 0W9G3ZZ Drainage of Peritoneal Cavity, Percutaneous Approach (ICD-10-PCS; 2020-10-26)
DX: C56.9 Malignant neoplasm of unspecified ovary (principal); N17.0 Acute kidney failure with tubular necrosis; C79.31 Secondary malignant neoplasm of brain; R18.0 Malignant ascites; D72.829 Elevated white blood cell count, unspecified; I48.91 Unspecified atrial fibrillation; Z66 Do not resuscitate; E86.0 Dehydration; K21.9 Gastro-esophageal reflux disease without esophagitis; N18.30 Chronic kidney disease, stage 3 unspecified; D64.9 Anemia, unspecified; Z20.822 Contact with and (suspected) exposure to COVID-19; I12.9 Hypertensive chronic kidney disease with stage 1 through stage 4 chronic kidney disease, or unspecified chronic kidney disease; Z51.5 Encounter for palliative care; Z98.890 Other specified postprocedural states; Z90.89 Acquired absence of other organs; Z88.6 Allergy status to analgesic agent; Z79.01 Long term (current) use of anticoagulants; Z79.899 Other long term (current) drug therapy; Z79.2 Long term (current) use of antibiotics
CPT/HCPCS: 36415; 36430; 51702; 74176; 76770; 80048; 80053; 81003; 81015; 82570; 85025; 85610; 85730; 86304; 86850; 86900; 86901; 87086; 87635; 96365; 96376; G0378; J2405; P9016; P9047; Q0167; U0003; U0005